=== PATIENT | female | born 1965 | race Caucasian/White ===

== ENCOUNTER 2017-10-02 15:51 | Emergency (ER) | payer MEDICARE, MEDICAID ==
[~2017-10-02] VITALS: Ht 149.9 cm; Wt 91.0 kg
[~2017-10-02 15:51] MED LIST: BACL10TA PO; CLON1TAB4 PO; DULO60CA64 PO; GLIP5TAB13 PO; IBUP-1984 PO; LANTUS SUBCUT; LISI10TA4 PO; LORA10TA7 PO; LOTLOT TOP; LURA40TA3 PO; MULT-342 PO; OMEP20CA10 PO; PROM25TA14 PO; TRAM50TA2 PO
[2017-10-02 16:28] LABS: BASOPHILS % (AUTO) 0.5 % (0-1); EOSINOPHILS # (AUTO) 0.3 X10'3 (0-0.9); EOSINOPHILS % (AUTO) 3.4 % (0-6); HEMATOCRIT 39.4 % (35.0-45.0); HEMOGLOBIN 13.6 g/dl (12.0-16.0); LYMPHOCYTES % (AUTO) 10.5 % (21-51); MEAN CORPUSCULAR HEMOGLOBIN 30.4 PG (27.0-31.0); MEAN CORPUSCULAR HGB CONC 34.6 % (33.0-36.5); MEAN PLATELET VOLUME 8.4 FL (7.4-10.4); MONOCYTES # (AUTO) 0.5 X10'3 (0-0.9); MONOCYTES % (AUTO) 5.8 % (2-12); NEUTROPHILS # (AUTO) 7.4 X10'3 (1.8-7.7); NEUTROPHILS % (AUTO) 79.8 % (42-75); PLATELET COUNT 222 X10'3 (140-440); RED BLOOD COUNT 4.48 X10'6 (4.20-5.60); RED CELL DISTRIBUTION WIDTH 15.3 % (11.5-14.5); WHITE BLOOD COUNT 9.3 X10'3 (4.5-11.0)
[2017-10-02 16:37] LABS: PROTHROMBIN TIME 10.6 SECONDS (9.0-12.0)
[2017-10-02 16:44] LABS: ALANINE AMINOTRANSFERASE 62 U/L (12-78); ALBUMIN 4.2 G/DL (3.4-5.0); ALKALINE PHOSPHATASE 142 IU/L (46-116); ANION GAP 7 (8-16); ASPARTATE AMINO TRANSFERASE 30 U/L (10-37); BILIRUBIN,TOTAL 0.4 MG/DL (0.1-1.0); BLOOD UREA NITROGEN 21 MG/DL (7-18); BUN/CREATININE RATIO 23.3 (6.6-38.0); CALCIUM 9.7 MG/DL (8.5-10.1); CHLORIDE 100 MMOL/L (99-107); GLUCOSE 72 MG/DL (70-104); POTASSIUM 4.2 MMOL/L (3.5-5.1); SODIUM 138 MMOL/L (135-145); TOTAL CARBON DIOXIDE 31.1 MMOL/L (24-32); TOTAL PROTEIN 8.4 G/DL (6.4-8.2); eGFR 66 ML/MIN
[2017-10-02] MEDS ORDERED: normal saline 1000ML IV soln IVB ONE (17:50)
[2017-10-02] MEDS ORDERED: morphine 2 MG/ML inj. syringe IV PRN (17:50)
[2017-10-02] MEDS ORDERED: ondansetron/PF 4mg/2ml inj IV ONE (17:50)
[2017-10-02 18:13] LABS: CLARITY,URINE CLEAR (Clear); COLOR,URINE STRAW (Yellow); PH,URINE 5.5 (4.8-8.0); UA COLLECTION TYPE CLN CATCH MIDSTREAM
[2017-10-02 18:14] LABS: GLUCOSE, URINE >=1000 mg/dl (Neg); KETONES,URINE NEGATIVE (Neg); NITRITES, URINE NEGATIVE (Neg); OCCULT BLOOD,URINE NEGATIVE (Neg); PROTEIN,URINE NEGATIVE (Neg); UROBILINOGEN,URINE 0.2 E.U/dL (0.2-1.0)
[2017-10-02 18:15] LABS: LEUKOCYTE ESTERASE ,URINE NEGATIVE (Neg)
[2017-10-02 18:17] LABS: BACTERIA,URINE NONE SEEN /HPF (Neg); RBC,URINE NONE SEEN /HPF (0-2); SQUAMOUS EPITHELIAL CELL,UR FEW /LPF (FEW); WBC,URINE NONE SEEN /HPF (0-4)
[2017-10-02 19:13] LABS: URINE AMPHETAMINE SCREEN NEGATIVE (Neg); URINE BARBITUATE SCREEN NEGATIVE (Neg); URINE BENZODIAZEPINES SCREEN NEGATIVE (Neg); URINE CANNABINOID SCREEN NEGATIVE (Neg); URINE COCAINE SCREEN NEGATIVE (Neg); URINE METHADONE SCREEN NEGATIVE (Neg); URINE OPIATE SCREEN NEGATIVE (Neg); URINE PHENCYCLIDINE SCREEN NEGATIVE (Neg)
[2017-10-02] MEDS: morphine 4 MG/ML inj SYRINge IV PRN ×2 (19:19→20:35)
[2017-10-02] MEDS ORDERED: ONDA4TAB12 PO (21:01)
[2017-10-02] MEDS ORDERED: dexamethasone 4mg/ml inj IV STA (21:04)
[2017-10-02] MEDS ORDERED: PRED20TA PO (21:06)
[2017-10-02 21:47] VITALS: BP 132/74
== END 2017-10-02 21:49 | disposition home or self-care (01) ==
LOC: ER 15:52
DX: R10.11 Right upper quadrant pain (principal); L25.9 Unspecified contact dermatitis, unspecified cause; I10 Essential (primary) hypertension; E11.9 Type 2 diabetes mellitus without complications; G89.29 Other chronic pain; Z88.2 Allergy status to sulfonamides; Z79.4 Long term (current) use of insulin; Z79.899 Other long term (current) drug therapy
CPT/HCPCS: 36415; 71045; 74176; 80053; 80305; 81001; 84145; 84443; 85025; 85610; 87502; 87503; 96361; 96374; 96375; 99285; J1100; J2270; J2405; J7030; 93005

== ENCOUNTER 2018-12-24 20:12 | Emergency (ER) | payer MEDICARE, MEDICAID ==
[~2018-12-24] VITALS: Ht 149.9 cm; Wt 88.8 kg
[~2018-12-24 20:12] MED LIST changes: +CLON-371 PO; -CLON1TAB4 PO; +ONDA4TAB12 PO
[2018-12-24] MEDS ORDERED: acetaminophen 325mg tablet PO STA (21:38)
[2018-12-24] MEDS ORDERED: normal saline 1000ML IV soln IV ONE (21:40)
[2018-12-24] MEDS ORDERED: CefTRIAXone 2gm/D5W 50ml 50 ML IV ONE (21:40)
[2018-12-24 21:41] LABS: CLARITY,URINE CLEAR (Clear); COLOR,URINE YELLOW (Yellow); GLUCOSE, URINE >=1000 mg/dl (Neg); KETONES,URINE NEGATIVE (Neg); LEUKOCYTE ESTERASE ,URINE NEGATIVE (Neg); NITRITES, URINE NEGATIVE (Neg); OCCULT BLOOD,URINE NEGATIVE (Neg); PH,URINE 5.5 (4.8-8.0); PROTEIN,URINE NEGATIVE (Neg); UROBILINOGEN,URINE 0.2 E.U/dL (0.2-1.0)
[2018-12-24 21:43] LABS: UA COLLECTION TYPE CLN CATCH MIDSTREAM
[2018-12-24 21:44] LABS: WBC,URINE 0-4 /HPF (0-4)
[2018-12-24 21:45] LABS: BACTERIA,URINE 1+ /HPF (Neg); RBC,URINE NONE SEEN /HPF (0-2); SQUAMOUS EPITHELIAL CELL,UR FEW /LPF (FEW)
[2018-12-24 22:16] LABS: BASOPHILS % (AUTO) 0.6 % (0-1); EOSINOPHILS # (AUTO) 0.3 X10'3 (0-0.9); EOSINOPHILS % (AUTO) 3.8 % (0-6); HEMATOCRIT 42.3 % (35.0-45.0); HEMOGLOBIN 14.3 g/dl (12.0-16.0); LYMPHOCYTES # (AUTO) 1.3 X10'3 (1.1-4.8); LYMPHOCYTES % (AUTO) 19.9 % (21-51); MEAN CORPUSCULAR HEMOGLOBIN 30.2 PG (27.0-31.0); MEAN CORPUSCULAR HGB CONC 33.7 g/dL (33.0-36.5); MEAN CORPUSCULAR VOLUME 89.6 FL (78-98); MEAN PLATELET VOLUME 8.7 FL (7.4-10.4); MONOCYTES # (AUTO) 0.6 X10'3 (0-0.9); MONOCYTES % (AUTO) 9.1 % (2-12); NEUTROPHILS # (AUTO) 4.4 X10'3 (1.8-7.7); NEUTROPHILS % (AUTO) 66.6 % (42-75); PLATELET COUNT 229 X10'3 (140-440); RED BLOOD COUNT 4.72 X10'6 (4.20-5.60); RED CELL DISTRIBUTION WIDTH 14.8 % (11.5-14.5); WHITE BLOOD COUNT 6.7 X10'3 (4.5-11.0)
[2018-12-24 22:35] LABS: ALANINE AMINOTRANSFERASE 47 U/L (12-78); ALBUMIN 3.9 G/DL (3.4-5.0); ALKALINE PHOSPHATASE 159 IU/L (46-116); ANION GAP 6 (8-16); ASPARTATE AMINO TRANSFERASE 25 U/L (10-37); BILIRUBIN,TOTAL 0.5 MG/DL (0.1-1.0); BLOOD UREA NITROGEN 17 MG/DL (7-18); CALCIUM 9.4 MG/DL (8.5-10.1); CHLORIDE 103 MMOL/L (99-107); CREATININE 1.06 MG/DL (0.40-0.90); GLUCOSE 129 MG/DL (70-104); MAGNESIUM 2.2 MG/DL (1.5-2.4); POTASSIUM 3.9 MMOL/L (3.5-5.1); SODIUM 137 MMOL/L (135-145); TOTAL CARBON DIOXIDE 28.2 MMOL/L (24-32); TOTAL PROTEIN 7.7 G/DL (6.4-8.2); eGFR 54 ML/MIN
[2018-12-24 22:36] LABS: INR 1.1 INR; PARTIAL THROMBOPLASTIN TIME 27 SECONDS (22-32)
[2018-12-24] MEDS ORDERED: CEPH500C5 PO (23:22)
[2018-12-24 23:29] VITALS: BP 123/73
== END 2018-12-24 23:32 | disposition home or self-care (01) ==
LOC: ER 20:13
DX: N39.0 Urinary tract infection, site not specified (principal); M54.5 Low back pain; I10 Essential (primary) hypertension; E11.9 Type 2 diabetes mellitus without complications; G89.29 Other chronic pain; Z88.2 Allergy status to sulfonamides; Z79.4 Long term (current) use of insulin; Z79.899 Other long term (current) drug therapy
CPT/HCPCS: 36415; 71045; 74176; 80053; 81001; 83605; 83735; 84145; 85025; 85610; 85730; 87040; 87088; 96365; 99284; J0696; J7030

== ENCOUNTER 2019-04-03 21:28 | Emergency (ER) | payer MEDICARE, MEDICAID ==
[~2019-04-03] VITALS: Ht 147.3 cm; Wt 81.8 kg
[~2019-04-03 21:28] MED LIST changes: +DIPH25CA83 PO; -DULO60CA64 PO; +DULO60CA65 PO; +FAMO-128 PO; -OMEP20CA10 PO; +OMEP20CA11 PO
[2019-04-03 22:52] LABS: ALANINE AMINOTRANSFERASE 64 U/L (12-78); ALBUMIN 4.3 G/DL (3.4-5.0); ALKALINE PHOSPHATASE 167 IU/L (46-116); ANION GAP 14 (8-16); ASPARTATE AMINO TRANSFERASE 39 U/L (10-37); BILIRUBIN,TOTAL 0.9 MG/DL (0.1-1.0); BLOOD UREA NITROGEN 17 MG/DL (7-18); BUN/CREATININE RATIO 14.4 (6.6-38.0); CALCIUM 9.6 MG/DL (8.5-10.1); CHLORIDE 100 MMOL/L (99-107); CREATININE 1.18 MG/DL (0.40-0.90); GLUCOSE 139 MG/DL (70-104); PARTIAL THROMBOPLASTIN TIME 28 SECONDS (22-32); POTASSIUM 3.9 MMOL/L (3.5-5.1); SODIUM 140 MMOL/L (135-145); TOTAL CARBON DIOXIDE 26.4 MMOL/L (24-32); TOTAL PROTEIN 8.5 G/DL (6.4-8.2); eGFR 48 ML/MIN
[2019-04-03] MEDS ORDERED: normal saline 1000ML IV soln IVB ONE (22:55)
[2019-04-03 22:57] LABS: BASOPHILS # (AUTO) 0.1 X10'3 (0-0.2); BASOPHILS % (AUTO) 0.7 % (0-1); EOSINOPHILS # (AUTO) 0.3 X10'3 (0-0.9); EOSINOPHILS % (AUTO) 3.5 % (0-6); HEMOGLOBIN 16.3 g/dl (12.0-16.0); LYMPHOCYTES # (AUTO) 1.5 X10'3 (1.1-4.8); LYMPHOCYTES % (AUTO) 15.8 % (21-51); MEAN CORPUSCULAR HEMOGLOBIN 30.7 PG (27.0-31.0); MEAN CORPUSCULAR HGB CONC 33.9 g/dL (33.0-36.5); MEAN CORPUSCULAR VOLUME 90.4 FL (78-98); MEAN PLATELET VOLUME 8.9 FL (7.4-10.4); MONOCYTES # (AUTO) 0.8 X10'3 (0-0.9); MONOCYTES % (AUTO) 8.5 % (2-12); NEUTROPHILS # (AUTO) 6.9 X10'3 (1.8-7.7); NEUTROPHILS % (AUTO) 71.5 % (42-75); PLATELET COUNT 290 X10'3 (140-440); RED BLOOD COUNT 5.31 X10'6 (4.20-5.60); RED CELL DISTRIBUTION WIDTH 14.6 % (11.5-14.5); TROPONIN I < 0.04 NG/ML (0.0-0.05); WHITE BLOOD COUNT 9.7 X10'3 (4.5-11.0)
--- NOTE | 2019-04-03 23:19 | NUR ---
2ND PAGE VASC AT 23:19
--- NOTE | 2019-04-03 23:44 | NUR ---
AFTER CALLING NURSE LING WHITESIDE CALLED BACK AT 23:45 AND WILL BE RIGHT IN
[2019-04-03 23:47] LABS: D-DIMER 0.26 MG/L FEU (0-0.50)
[2019-04-04] MEDS ORDERED: HYDROcodone/acetaminophen 5mg/325mg tablet PO ONE
--- NOTE | 2019-04-04 00:15 | NUR ---
underwriting technician at bedside to perform vascular study of lower extremities.
[2019-04-04 00:59] VITALS: BP 120/76
== END 2019-04-04 01:03 | disposition home or self-care (01) ==
LOC: ER 21:29
DX: R06.02 Shortness of breath (principal); M79.604 Pain in right leg; I10 Essential (primary) hypertension; R00.0 Tachycardia, unspecified; E78.00 Pure hypercholesterolemia, unspecified; G89.29 Other chronic pain; F41.9 Anxiety disorder, unspecified; F32.9 Major depressive disorder, single episode, unspecified; F12.90 Cannabis use, unspecified, uncomplicated; Z90.710 Acquired absence of both cervix and uterus; Z88.2 Allergy status to sulfonamides; Z88.1 Allergy status to other antibiotic agents; Z79.4 Long term (current) use of insulin; Z79.899 Other long term (current) drug therapy
CPT/HCPCS: 36415; 71045; 80053; 82948; 83605; 84145; 84484; 85025; 85379; 85610; 85730; 87040; 93005; 93971; 96360; 99284; J7030

== ENCOUNTER 2019-04-27 13:59 | Emergency (ER) | payer MEDICARE, MEDICAID ==
[~2019-04-27] VITALS: Ht 147.3 cm; Wt 84.1 kg
[2019-04-27] MEDS ORDERED: ondansetron/PF 4mg/2ml inj IV ONE (14:05)
[2019-04-27] MEDS ORDERED: normal saline 1000ML IV soln IVB ONE (14:05)
[2019-04-27 14:28] LABS: BASOPHILS % (AUTO) 0.3 % (0-1); EOSINOPHILS % (AUTO) 0.2 % (0-6); HEMATOCRIT 43.6 % (35.0-45.0); HEMOGLOBIN 15.1 g/dl (12.0-16.0); LYMPHOCYTES # (AUTO) 0.7 X10'3 (1.1-4.8); LYMPHOCYTES % (AUTO) 7.4 % (21-51); MEAN CORPUSCULAR HEMOGLOBIN 30.9 PG (27.0-31.0); MEAN CORPUSCULAR HGB CONC 34.6 g/dL (33.0-36.5); MEAN CORPUSCULAR VOLUME 89.4 FL (78-98); MEAN PLATELET VOLUME 9.2 FL (7.4-10.4); MONOCYTES # (AUTO) 0.3 X10'3 (0-0.9); MONOCYTES % (AUTO) 3.8 % (2-12); NEUTROPHILS # (AUTO) 8.1 X10'3 (1.8-7.7); NEUTROPHILS % (AUTO) 88.3 % (42-75); PLATELET COUNT 212 X10'3 (140-440); RED BLOOD COUNT 4.88 X10'6 (4.20-5.60); RED CELL DISTRIBUTION WIDTH 13.9 % (11.5-14.5); WHITE BLOOD COUNT 9.2 X10'3 (4.5-11.0)
[2019-04-27 14:42] LABS: CLARITY,URINE CLEAR (Clear); COLOR,URINE YELLOW (Yellow); GLUCOSE, URINE >=1000 mg/dl (Neg); KETONES,URINE >=80 mg/dl (Neg); LEUKOCYTE ESTERASE ,URINE NEGATIVE (Neg); NITRITES, URINE NEGATIVE (Neg); OCCULT BLOOD,URINE NEGATIVE (Neg); PROTEIN,URINE NEGATIVE (Neg); UROBILINOGEN,URINE 0.2 E.U/dL (0.2-1.0)
[2019-04-27 14:44] LABS: UA COLLECTION TYPE STRAIGHT CATH
[2019-04-27 14:46] LABS: ALANINE AMINOTRANSFERASE 42 U/L (12-78); ALBUMIN 3.9 G/DL (3.4-5.0); ALKALINE PHOSPHATASE 142 IU/L (46-116); ANION GAP 13 (8-16); ASPARTATE AMINO TRANSFERASE 24 U/L (10-37); BILIRUBIN,TOTAL 0.8 MG/DL (0.1-1.0); BLOOD UREA NITROGEN 16 MG/DL (7-18); CALCIUM 9.6 MG/DL (8.5-10.1); CHLORIDE 102 MMOL/L (99-107); CREATININE 1.14 MG/DL (0.40-0.90); GLUCOSE 193 MG/DL (70-104); POTASSIUM 4.3 MMOL/L (3.5-5.1); SODIUM 139 MMOL/L (135-145); TOTAL CARBON DIOXIDE 24.3 MMOL/L (24-32); TOTAL PROTEIN 7.9 G/DL (6.4-8.2); eGFR 50 ML/MIN
[2019-04-27 14:51] LABS: LIPASE 67 U/L (73-393)
[2019-04-27 14:54] LABS: BACTERIA,URINE NONE SEEN /HPF (Neg); RBC,URINE NONE SEEN /HPF (0-2); SQUAMOUS EPITHELIAL CELL,UR MODERATE /LPF (FEW); WBC,URINE NONE SEEN /HPF (0-4)
[2019-04-27] MEDS ORDERED: MYCOL15CR TOP (15:00)
[2019-04-27] MEDS ORDERED: ONDA4TAB6 PO (15:00)
[2019-04-27] MEDS ORDERED: morphine 4 MG/ML inj SYRINge IV ONE (15:00)
[2019-04-27] MEDS ORDERED: LORazepam 2 mg/ml vial IV ONE (15:00)
--- NOTE | 2019-04-27 15:23 | NUR ---
Called caregiver, Rj, states that they will come to ED to give pt ride home.
[2019-04-27 16:02] VITALS: BP 115/77
== END 2019-04-27 16:06 | disposition home or self-care (01) ==
LOC: ER 14:00
DX: A08.4 Viral intestinal infection, unspecified (principal); B37.3 Candidiasis of vulva and vagina; I10 Essential (primary) hypertension; E11.9 Type 2 diabetes mellitus without complications; G89.29 Other chronic pain; F41.9 Anxiety disorder, unspecified; F32.9 Major depressive disorder, single episode, unspecified; F12.90 Cannabis use, unspecified, uncomplicated; C53.9 Malignant neoplasm of cervix uteri, unspecified; Z88.2 Allergy status to sulfonamides; Z86.73 Personal history of transient ischemic attack (TIA), and cerebral infarction without residual deficits; Z88.1 Allergy status to other antibiotic agents; Z79.4 Long term (current) use of insulin; Z79.899 Other long term (current) drug therapy
CPT/HCPCS: 36415; 71045; 80053; 81001; 83690; 83880; 84484; 85025; 93005; 96361; 96374; 96375; 99284; J2060; J2270; J2405; J7030; P9612

== ENCOUNTER 2019-07-12 00:37 | Emergency (ER) | payer MEDICARE, MEDICAID ==
[~2019-07-12] VITALS: Ht 149.9 cm; Wt 81.0 kg
[~2019-07-12 00:37] MED LIST changes: +OMEP-297 PO; -OMEP20CA11 PO; +ONDA4TAB6 PO
--- NOTE | 2019-07-12 00:49 | NUR ---
Dr Quesada at bedside to nathan pt
[2019-07-12] MEDS ORDERED: normal saline 1000ML IV soln IV ONE (00:55)
[2019-07-12] MEDS ORDERED: acetaminophen 325mg tablet PO ONE (01:30)
[2019-07-12 01:40] LABS: PARTIAL THROMBOPLASTIN TIME 26 SECONDS (22-32)
[2019-07-12 01:59] LABS: ALANINE AMINOTRANSFERASE 50 U/L (12-78); ALKALINE PHOSPHATASE 182 IU/L (46-116); ANION GAP 9 (8-16); ASPARTATE AMINO TRANSFERASE 28 U/L (10-37); BILIRUBIN,TOTAL 0.5 MG/DL (0.1-1.0); BLOOD UREA NITROGEN 19 MG/DL (7-18); BUN/CREATININE RATIO 18.8 (6.6-38.0); CALCIUM 9.1 MG/DL (8.5-10.1); CHLORIDE 99 MMOL/L (99-107); CREATININE 1.01 MG/DL (0.40-0.90); GLUCOSE 253 MG/DL (70-104); MAGNESIUM 1.9 MG/DL (1.5-2.4); POTASSIUM 4.4 MMOL/L (3.5-5.1); SODIUM 137 MMOL/L (135-145); TOTAL CARBON DIOXIDE 28.6 MMOL/L (24-32); TOTAL PROTEIN 7.9 G/DL (6.4-8.2); eGFR 57 ML/MIN
[2019-07-12 02:11] LABS: BASOPHILS % (AUTO) 0.5 % (0-1); EOSINOPHILS # (AUTO) 0.2 X10'3 (0-0.9); EOSINOPHILS % (AUTO) 3.2 % (0-6); HEMOGLOBIN 14.7 g/dl (12.0-16.0); LYMPHOCYTES # (AUTO) 0.8 X10'3 (1.1-4.8); LYMPHOCYTES % (AUTO) 12.6 % (21-51); MEAN CORPUSCULAR HGB CONC 34.1 g/dL (33.0-36.5); MEAN PLATELET VOLUME 9.5 FL (7.4-10.4); MONOCYTES # (AUTO) 0.4 X10'3 (0-0.9); MONOCYTES % (AUTO) 7.2 % (2-12); NEUTROPHILS # (AUTO) 4.6 X10'3 (1.8-7.7); NEUTROPHILS % (AUTO) 76.5 % (42-75); PLATELET COUNT 182 X10'3 (140-440); RED BLOOD COUNT 4.73 X10'6 (4.20-5.60); RED CELL DISTRIBUTION WIDTH 14.6 % (11.5-14.5); WHITE BLOOD COUNT 6.1 X10'3 (4.5-11.0)
[2019-07-12 02:23] LABS: URINE HCG NEGATIVE (NEG)
[2019-07-12 02:28] LABS: CLARITY,URINE CLEAR (Clear); COLOR,URINE YELLOW (Yellow); GLUCOSE, URINE >=1000 mg/dl (Neg); KETONES,URINE NEGATIVE (Neg); LEUKOCYTE ESTERASE ,URINE NEGATIVE (Neg); NITRITES, URINE NEGATIVE (Neg); OCCULT BLOOD,URINE NEGATIVE (Neg); PROTEIN,URINE NEGATIVE (Neg); UROBILINOGEN,URINE 0.2 E.U/dL (0.2-1.0)
[2019-07-12] MEDS ORDERED: normal saline 1000ML IV soln IVB ONE (02:30)
[2019-07-12 02:33] LABS: UA COLLECTION TYPE CLN CATCH MIDSTREAM
[2019-07-12 02:35] LABS: BACTERIA,URINE FEW /HPF (Neg); MUCUS STRANDS NONE SEEN /LPF (Neg); RBC,URINE NONE SEEN /HPF (0-2); SQUAMOUS EPITHELIAL CELL,UR FEW /LPF (FEW); WBC,URINE 0-4 /HPF (0-4)
[2019-07-12] MEDS ORDERED: NYST1POW5 TOP (02:50)
[2019-07-12] MEDS ORDERED: nystatin 15 GM powder TP ONE (02:50)
[2019-07-12] MEDS ORDERED: HYDROcodone/acetaminophen 5mg/325mg tablet PO ONE (02:50)
[2019-07-12] MEDS ORDERED: nystatin 15 GM powder TP SCH (02:50)
[2019-07-12] MEDS ORDERED: fluconazole 150mg tablet PO ONE (03:00)
[2019-07-12 04:00] VITALS: BP 100/64
== END 2019-07-12 04:01 | disposition home or self-care (01) ==
LOC: ER 00:38
DX: B37.9 Candidiasis, unspecified (principal); R50.9 Fever, unspecified; R53.83 Other fatigue; I10 Essential (primary) hypertension; E11.9 Type 2 diabetes mellitus without complications; G89.29 Other chronic pain; F41.9 Anxiety disorder, unspecified; F32.9 Major depressive disorder, single episode, unspecified; F12.90 Cannabis use, unspecified, uncomplicated; Z90.710 Acquired absence of both cervix and uterus; Z88.2 Allergy status to sulfonamides; Z88.1 Allergy status to other antibiotic agents; Z79.2 Long term (current) use of antibiotics; Z79.4 Long term (current) use of insulin; Z79.899 Other long term (current) drug therapy
CPT/HCPCS: 36415; 71045; 80053; 81001; 81025; 83605; 83735; 84145; 85025; 85610; 85730; 87040; 93005; 99284; J7030

== ENCOUNTER 2021-01-05 21:21 | Emergency (ER) | payer MEDICARE, MEDICAID ==
[~2021-01-05] VITALS: Ht 147.3 cm; Wt 79.0 kg
[~2021-01-05 21:21] MED LIST changes: +LISI10TA27 PO; -LISI10TA4 PO; +NYST1POW5 TOP; -OMEP-297 PO; +OMEP20CA15 PO
[2021-01-06] MEDS ORDERED: HYDROcodone/acetaminophen 10/325mg tab PO ONE (03:40)
[2021-01-06] MEDS ORDERED: amox tr/potassium clavulanate 875/125mg TAB PO ONE (03:55)
[2021-01-06] MEDS ORDERED: AMOX-422 PO (04:58)
[2021-01-06] MEDS ORDERED: HYDR-3972 PO (04:58)
[2021-01-06 05:20] VITALS: BP 144/75
== END 2021-01-06 05:33 | disposition home or self-care (01) ==
LOC: ER 21:22
DX: E11.621 Type 2 diabetes mellitus with foot ulcer (principal); L97.411 Non-pressure chronic ulcer of right heel and midfoot limited to breakdown of skin; G62.9 Polyneuropathy, unspecified; I10 Essential (primary) hypertension; G89.29 Other chronic pain; F41.9 Anxiety disorder, unspecified; F32.9 Major depressive disorder, single episode, unspecified; F12.90 Cannabis use, unspecified, uncomplicated; Z85.41 Personal history of malignant neoplasm of cervix uteri; Z90.710 Acquired absence of both cervix and uterus; Z88.2 Allergy status to sulfonamides; Z88.1 Allergy status to other antibiotic agents; Z88.8 Allergy status to other drugs, medicaments and biological substances; Z79.2 Long term (current) use of antibiotics; Z79.4 Long term (current) use of insulin; Z79.899 Other long term (current) drug therapy
CPT/HCPCS: 73630; 99284

== ENCOUNTER 2021-02-10 09:30 | Inpatient (IN) | payer MEDICARE, MEDICAID ==
[2021-02-02 16:05] LABS: CLARITY,URINE SLIGHTLY CLOUDY (Clear); COLOR,URINE STRAW (Yellow); GLUCOSE, URINE >=1000 mg/dl (Neg); KETONES,URINE NEGATIVE (Neg); LEUKOCYTE ESTERASE ,URINE NEGATIVE (Neg); NITRITES, URINE NEGATIVE (Neg); OCCULT BLOOD,URINE NEGATIVE (Neg); PH,URINE 6.5 (4.8-8.0); PROTEIN,URINE NEGATIVE (Neg); UROBILINOGEN,URINE 0.2 E.U/dL (0.2-1.0)
[2021-02-02 16:06] LABS: UA COLLECTION TYPE CLN CATCH MIDSTREAM
[2021-02-02 16:11] LABS: BASOPHILS % (AUTO) 0.6 % (0-1); EOSINOPHILS # (AUTO) 0.2 X10'3 (0-0.9); EOSINOPHILS % (AUTO) 3.3 % (0-6); LYMPHOCYTES # (AUTO) 0.9 X10'3 (1.1-4.8); LYMPHOCYTES % (AUTO) 16.6 % (21-51); MEAN CORPUSCULAR HGB CONC 33.6 g/dL (33.0-36.5); MEAN CORPUSCULAR VOLUME 86.3 FL (78-98); MEAN PLATELET VOLUME 8.3 FL (7.4-10.4); MONOCYTES # (AUTO) 0.3 X10'3 (0-0.9); MONOCYTES % (AUTO) 6.2 % (2-12); NEUTROPHILS % (AUTO) 73.3 % (42-75); PRE OP HEMOGLOBIN 13.1 g/dL (12.0-16.0); PRE OP PLATELET COUNT 148 X10'3 (140-440); RED BLOOD COUNT 4.52 X10'6 (4.20-5.60)
[2021-02-02 16:18] LABS: SQUAMOUS EPITHELIAL CELL,UR MODERATE /LPF (FEW)
[2021-02-02 16:19] LABS: BACTERIA,URINE FEW /HPF (Neg); RBC,URINE 0-2 /HPF (0-2); WBC,URINE 0-4 /HPF (0-4)
[2021-02-02 16:21] LABS: ALBUMIN 3.7 G/DL (3.4-5.0); ALBUMIN/GLOBULIN RATIO 0.9 (1.1-1.5); ALKALINE PHOSPHATASE 175 IU/L (46-116); BLOOD UREA NITROGEN 14 MG/DL (7-18); BUN/CREATININE RATIO 18.4 (6.6-38.0); CALCIUM 8.9 MG/DL (8.5-10.1); CHLORIDE 100 MMOL/L (99-107); CREATININE 0.76 MG/DL (0.40-0.90); PRE OP ALT 38 U/L (30-65); PRE OP ANION GAP 7 (8-16); PRE OP AST 27 U/L (10-37); PRE OP BILIRUB, TOTAL 0.5 MG/DL (0.0-1.0); PRE OP GLUCOSE 105 MG/DL (70-104); PRE OP POTASSIUM 4.3 MMOL/L (3.4-5.1); PRE OP SODIUM 137 MMOL/L (135-145); TOTAL CARBON DIOXIDE 29.8 MMOL/L (24-32); eGFR 79 ML/MIN
[2021-02-02 16:35] LABS: HEMOGLOBIN A1C 8.4 % (4.5-6.2)
[2021-02-10] VITALS (13 sets, daily range): BP systolic 116–149; BP diastolic 61–97
[~2021-02-10] VITALS: Ht 147.3 cm; Wt 82.8 kg
[~2021-02-10 09:30] MED LIST changes: +AMIT10TA6 PO; +AMOX250S3 PO; -BACL10TA PO; -CLON-371 PO; -DIPH25CA83 PO; +EMPA1TAB3 PO; -FAMO-128 PO; +GABA-534 PO; -GLIP5TAB13 PO; +HYDR-3972 PO; -IBUP-1984 PO; +INSU100V9 SQ; -LANTUS SUBCUT; +LIDOcaine 2% 5ml jelly ONE; -LOTLOT TOP; -LURA40TA3 PO; +MULT-1130 PO; -MULT-342 PO; +MV/K1COM PO; -NYST1POW5 TOP; -ONDA4TAB12 PO; -ONDA4TAB6 PO; -PROM25TA14 PO; -TRAM50TA2 PO; +TRAZ-251 PO; +cefazolin/dext.iso 2gm/100ml IV ONE; +famotidine 20mg tablet PO ONE; +ringers solution, lacted 1,000 ML IV SCH
[2021-02-10] MEDS ORDERED: insulin regular, human 10 units/0.1 ml syringe SQ ONE (11:20)
[2021-02-10] MEDS ORDERED: diazepam 5mg tablet PO ONE (11:25)
[2021-02-10] MEDS ORDERED: morphine 4 MG/ML inj SYRINge IV PRN (11:35)
[2021-02-10] MEDS ORDERED: meperidine/PF 25mg/ml syringe IV PRN ×3 (11:35)
[2021-02-10] MEDS ORDERED: proCHLORperazine 10 MG/2 ml inj IV PRN (11:35)
[2021-02-10] MEDS ORDERED: ringers solution, lacted 1,000 ML IV SCH (11:35)
[2021-02-10] MEDS ORDERED: ondansetron/PF 4mg/2ml inj IV PRN ×2 (11:35→13:55)
[2021-02-10] MEDS ORDERED: morphine 2 MG/ML inj. syringe IV PRN ×2 (11:35→13:55)
[2021-02-10] MEDS ORDERED: fentaNYL/PF 50MCG/1 ML 2ML syringe ONE (12:26)
[2021-02-10] MEDS ORDERED: midazolam 1 mg/ML 2ml injection ONE (12:26)
[2021-02-10] MEDS ORDERED: propofol inj 20 ML IV ONE (12:27)
[2021-02-10] MEDS ORDERED: ROPIVAcaine 0.5% (5mg/ml) 30ml vial ONE (12:30)
[2021-02-10] MEDS ORDERED: sevoflurane 250ml liquid IH ONE (12:31)
[2021-02-10] MEDS ORDERED: bacitracin 15gm ointment TP ONE (13:34)
[2021-02-10] MEDS ORDERED: mag hydrox/Alum hydrox/simeth 30ml oral suspension PO PRN (13:55)
[2021-02-10] MEDS ORDERED: acetaminophen 325mg tablet PO PRN (13:55)
[2021-02-10] MEDS ORDERED: magnesium hydroxide 30ml (MOM) UD suspension PO PRN (13:55)
--- NOTE | 2021-02-10 14:38 | NUR ---
RECEIVED REPORT FROM [facility]. PT AWAKE ALERT VSS RA SAT 94% DENIES PAIN IV TO RIGHT HAND 20G INTACT WITH IVF INFUSING WITHOUT DIFF. CONT TO MONITOR Addendum: 02/10/21 at 1450 by Aurora Alexander RN Amended: Links added.
[2021-02-10] MEDS ORDERED: HYDROcodone/acetaminophen 10/325mg tab PO PRN (16:10)
[2021-02-10] MEDS: HYDROcodone/acetaminophen 10/325mg tab PO PRN ×2 (17:37→21:58)
--- NOTE | 2021-02-10 18:12 | NUR ---
Problems reprioritized. Patient report given, questions answered & plan of care reviewed with LORRAINE DUNCAN.
[2021-02-10] MEDS ORDERED: insulin Lispro (HumaLOG) vial - multi-dose SQ SCH (18:15)
[2021-02-10] MEDS ORDERED: MESSAGE TO PHARMACY PO ONE (18:15)
[2021-02-10] MEDS ORDERED: dextrose ORAL solution 15 GM/59 ML bottle PO PRN ×2 (18:15)
[2021-02-10] MEDS ORDERED: glucagon, human recombinant 1mg kit SUBCUT PRN (18:15)
[2021-02-10] MEDS ORDERED: dextrose 50%-water 50ml dispensing syringe IV PRN ×2 (18:15)
--- NOTE | 2021-02-10 18:35 | NUR ---
Patient in room ORTHO 4007. I have received report from Rivka DUNCAN and had the opportunity to ask questions and assume patient care.
[2021-02-10] MEDS ORDERED: traZODone 50mg tablet PO SCH (21:00)
[2021-02-10] MEDS ORDERED: amitriptyline 25mg tablet PO SCH (21:00)
[2021-02-10] MEDS ORDERED: insulin glargine (Lantus) pen - multi-dose SQ SCH ×3 (21:00)
[2021-02-10] MEDS: gabapentin 400mg capsule PO SCH (21:44)
[2021-02-11 02:00] VITALS: BP 124/79
[2021-02-11] MEDS: HYDROcodone/acetaminophen 10/325mg tab PO PRN ×2 (05:47→09:33)
[2021-02-11 06:00] VITALS: BP 123/73
--- NOTE | 2021-02-11 06:02 | NUR ---
MEDICATED WITH NORCO 10 TO BE READY TO WORK WITH PHY. THER. PATIENT HOPING TO DISCHG EARLY THIS AM TO GET HOME BEFORE IT GETS TOO HOT. REPORT GIVEN TO KAIA DUNCAN
[2021-02-11] MEDS: gabapentin 400mg capsule PO SCH (07:15)
[2021-02-11] MEDS ORDERED: [UNRECOGNIZED DRUG - MIXTURE] PO SCH (08:00)
[2021-02-11] MEDS ORDERED: EMPAGLIFLOZIN PO SCH (08:00)
[2021-02-11] MEDS ORDERED: [UNRECOGNIZED DRUG - OTHER] PO SCH (08:00)
[2021-02-11] MEDS ORDERED: multivitamins, therapeutics tablet PO SCH (08:00)
[2021-02-11] MEDS ORDERED: pantoprazole 40mg Tablet.DR PO SCH (08:00)
[2021-02-11] MEDS ORDERED: loratadine 10mg tablet PO SCH (08:00)
[2021-02-11] MEDS ORDERED: duloxetine 30mg CAPSULE.DR PO SCH (08:00)
[2021-02-11] MEDS ORDERED: LINAGLIPTIN PO SCH (08:00)
[2021-02-11] MEDS ORDERED: amoxicillin 250MG/5ML oral suspension 80ML PO SCH (08:00)
[2021-02-11] MEDS ORDERED: lisinopril 10 MG tablet PO SCH (08:00)
[2021-02-11 10:00] VITALS: BP 115/65
[2021-02-11] MEDS ORDERED: HYDR-3972 PO ×3 (11:01→11:40)
--- NOTE | 2021-02-11 14:05 | NUR ---
Pt discharged at 1345. Belongings sent with pt. Discharge instructions reviewed with patient. All questions answered/ reviewed.. Pt discharged in stable condition with friend in private vehicle
== END 2021-02-11 13:25 | disposition home health service (06) | DRG 502 ==
LOC: PAS 09:30 → ORTHO 4S 15:42
PROVIDERS: ADMIT Podiatrist Foot & Ankle Surgery; ATTEND Podiatrist Foot & Ankle Surgery
PROC: 0QTN0ZZ Resection of Right Metatarsal, Open Approach (ICD-10-PCS; 2021-02-10)
PROC: 3E0T3BZ Introduction of Anesthetic Agent into Peripheral Nerves and Plexi, Percutaneous Approach (ICD-10-PCS; 2021-02-10)
PROC: 0LXV0ZZ Transfer Right Foot Tendon, Open Approach (ICD-10-PCS; principal; 2021-02-10 12:31)
DX: M20.31 Hallux varus (acquired), right foot (principal); E11.40 Type 2 diabetes mellitus with diabetic neuropathy, unspecified; F32.9 Major depressive disorder, single episode, unspecified; I10 Essential (primary) hypertension; E66.9 Obesity, unspecified; M25.871 Other specified joint disorders, right ankle and foot; G89.29 Other chronic pain; K21.9 Gastro-esophageal reflux disease without esophagitis; S90.921A Unspecified superficial injury of right foot, initial encounter; X58.XXXA Exposure to other specified factors, initial encounter; F41.9 Anxiety disorder, unspecified; J44.9 Chronic obstructive pulmonary disease, unspecified; Z79.899 Other long term (current) drug therapy; Z83.3 Family history of diabetes mellitus; Z90.711 Acquired absence of uterus with remaining cervical stump; Z68.38 Body mass index [BMI] 38.0-38.9, adult; Z88.2 Allergy status to sulfonamides; Y93.89 Activity, other specified; Y92.89 Other specified places as the place of occurrence of the external cause; Y99.8 Other external cause status
CPT/HCPCS: 36415; 73620; 76000; 80053; 81001; 82948; 83036; 85025; 85651; 86140; 93005; 97116; 97161; 97530; 97535; G0378; J1815; J2250; J2704; J2795; J3010; J7120; U0003; U0005

== ENCOUNTER 2021-02-19 21:10 | Emergency (ER) | payer MEDICARE, MEDICAID ==
[~2021-02-19] VITALS: Ht 147.3 cm; Wt 77.2 kg
[~2021-02-19 21:10] MED LIST changes: -AMOX250S3 PO; -EMPA1TAB3 PO; -INSU100V9 SQ; -LIDOcaine 2% 5ml jelly ONE; -cefazolin/dext.iso 2gm/100ml IV ONE; -famotidine 20mg tablet PO ONE; -ringers solution, lacted 1,000 ML IV SCH
[2021-02-20] MEDS ORDERED: CLIN-97 PO (00:51)
[2021-02-20] MEDS ORDERED: oxyCODONE/APAP 5-325mg tablet PO ONE (01:05)
[2021-02-20 01:15] LABS: BASOPHILS % (AUTO) 0.7 % (0-1); EOSINOPHILS # (AUTO) 0.2 X10'3 (0-0.9); HEMOGLOBIN 13.2 g/dl (12.0-16.0); LYMPHOCYTES # (AUTO) 0.8 X10'3 (1.1-4.8); LYMPHOCYTES % (AUTO) 14.9 % (21-51); MEAN CORPUSCULAR HEMOGLOBIN 28.8 PG (27.0-31.0); MEAN CORPUSCULAR HGB CONC 33.9 g/dL (33.0-36.5); MEAN PLATELET VOLUME 8.4 FL (7.4-10.4); MONOCYTES # (AUTO) 0.4 X10'3 (0-0.9); MONOCYTES % (AUTO) 7.9 % (2-12); NEUTROPHILS % (AUTO) 73.5 % (42-75); PLATELET COUNT 168 X10'3 (140-440); RED BLOOD COUNT 4.59 X10'6 (4.20-5.60); RED CELL DISTRIBUTION WIDTH 14.7 % (11.5-14.5); WHITE BLOOD COUNT 5.5 X10'3 (4.5-11.0)
[2021-02-20 01:22] LABS: CLARITY,URINE CLEAR (Clear); COLOR,URINE YELLOW (Yellow); GLUCOSE, URINE >=1000 mg/dl (Neg); KETONES,URINE NEGATIVE (Neg); LEUKOCYTE ESTERASE ,URINE TRACE (Neg); NITRITES, URINE NEGATIVE (Neg); OCCULT BLOOD,URINE SMALL (Neg); PROTEIN,URINE NEGATIVE (Neg); UROBILINOGEN,URINE 0.2 E.U/dL (0.2-1.0)
[2021-02-20 01:29] LABS: UA COLLECTION TYPE NON-SPECIFIED
[2021-02-20 01:30] LABS: BACTERIA,URINE FEW /HPF (Neg); RBC,URINE 0-2 /HPF (0-2); SQUAMOUS EPITHELIAL CELL,UR FEW /LPF (FEW)
[2021-02-20 01:57] LABS: ALANINE AMINOTRANSFERASE 47 U/L (12-78); ALBUMIN 3.6 G/DL (3.4-5.0); ALBUMIN/GLOBULIN RATIO 0.9 (1.1-1.5); ALKALINE PHOSPHATASE 176 IU/L (46-116); ANION GAP 6 (8-16); ASPARTATE AMINO TRANSFERASE 27 U/L (10-37); BILIRUBIN,TOTAL 0.6 MG/DL (0.1-1.0); BLOOD UREA NITROGEN 18 MG/DL (7-18); BUN/CREATININE RATIO 19.8 (6.6-38.0); CHLORIDE 99 MMOL/L (99-107); CREATININE 0.91 MG/DL (0.40-0.90); GLUCOSE 188 MG/DL (70-104); SODIUM 134 MMOL/L (135-145); TOTAL CARBON DIOXIDE 29.5 MMOL/L (24-32); TOTAL PROTEIN 7.8 G/DL (6.4-8.2); eGFR 64 ML/MIN
[2021-02-20] MEDS ORDERED: clindamycin 300mg/D5W 50mL 50 ML IV ONE (02:30)
[2021-02-20 03:34] VITALS: BP 139/65
[2021-02-20] MEDS ORDERED: CLINDAMYCIN 300mg/NS 50ml IVPB 50 ML IV SCH (08:00)
== END 2021-02-20 03:36 | disposition home or self-care (01) ==
LOC: ER 21:11
DX: M96.840 Postprocedural hematoma of a musculoskeletal structure following a musculoskeletal system procedure (principal); I10 Essential (primary) hypertension; E11.9 Type 2 diabetes mellitus without complications; F12.90 Cannabis use, unspecified, uncomplicated; G89.29 Other chronic pain; Z87.410 Personal history of cervical dysplasia; Z90.710 Acquired absence of both cervix and uterus; Z88.0 Allergy status to penicillin; Z88.2 Allergy status to sulfonamides; Z91.013 Allergy to seafood; Z79.2 Long term (current) use of antibiotics; Z79.899 Other long term (current) drug therapy; Y83.8 Other surgical procedures as the cause of abnormal reaction of the patient, or of later complication, without mention of misadventure at the time of the procedure; Y79.8 Miscellaneous orthopedic devices associated with adverse incidents, not elsewhere classified
CPT/HCPCS: 36415; 80053; 81001; 83605; 85025; 87040; 96365; 99284; J3490

== ENCOUNTER 2021-07-03 17:43 | Emergency (ER) | payer MEDICARE, MEDICAID ==
[~2021-07-03] VITALS: Ht 147.3 cm; Wt 77.3 kg
[~2021-07-03 17:43] MED LIST changes: +CLIN-97 PO
[2021-07-03 18:29] VITALS: BP 130/85
[2021-07-03 19:15] LABS: CLARITY,URINE CLEAR (Clear); COLOR,URINE YELLOW (Yellow); GLUCOSE, URINE >=1000 mg/dl (Neg); KETONES,URINE NEGATIVE (Neg); LEUKOCYTE ESTERASE ,URINE NEGATIVE (Neg); NITRITES, URINE NEGATIVE (Neg); OCCULT BLOOD,URINE TRACE-LYSED (Neg); PROTEIN,URINE NEGATIVE (Neg); UROBILINOGEN,URINE 0.2 E.U/dL (0.2-1.0)
[2021-07-03 19:27] LABS: UA COLLECTION TYPE NON-SPECIFIED
[2021-07-03 19:31] LABS: BACTERIA,URINE FEW /HPF (Neg); RBC,URINE 0-2 /HPF (0-2); WBC,URINE 0-4 /HPF (0-4)
[2021-07-03 19:32] LABS: MUCUS STRANDS FEW /LPF (Neg); SQUAMOUS EPITHELIAL CELL,UR MODERATE /LPF (FEW)
[2021-07-03] MEDS ORDERED: FLUC150T66 PO (19:37)
[2021-07-03] MEDS ORDERED: MYCOL30CR TP (19:37)
== END 2021-07-03 17:55 | disposition home or self-care (01) ==
LOC: ER 17:43
DX: B37.9 Candidiasis, unspecified (principal); R21 Rash and other nonspecific skin eruption; M25.511 Pain in right shoulder; I10 Essential (primary) hypertension; E11.9 Type 2 diabetes mellitus without complications; F12.90 Cannabis use, unspecified, uncomplicated; G89.29 Other chronic pain; Z87.410 Personal history of cervical dysplasia; Z90.710 Acquired absence of both cervix and uterus; Z88.2 Allergy status to sulfonamides; Z88.8 Allergy status to other drugs, medicaments and biological substances; Z79.2 Long term (current) use of antibiotics; Z79.899 Other long term (current) drug therapy
CPT/HCPCS: 81001; 99283

== ENCOUNTER 2021-07-06 13:48 | Emergency (ER) | payer MEDICARE, MEDICAID ==
[~2021-07-06] VITALS: Ht 147.3 cm; Wt 77.3 kg
[~2021-07-06 13:48] MED LIST changes: +FLUC150T66 PO; +MYCOL30CR TP
[2021-07-06 14:10] VITALS: BP 118/73
[2021-07-06] MEDS ORDERED: HYDR-3965 PO (14:16)
[2021-07-06] MEDS ORDERED: NAPR-56 PO (14:16)
== END 2021-07-06 14:31 | disposition home or self-care (01) ==
LOC: ER 13:50
DX: S46.001A Unspecified injury of muscle(s) and tendon(s) of the rotator cuff of right shoulder, initial encounter (principal); M12.9 Arthropathy, unspecified; M25.511 Pain in right shoulder; I10 Essential (primary) hypertension; E11.9 Type 2 diabetes mellitus without complications; G89.29 Other chronic pain; F41.9 Anxiety disorder, unspecified; F32.9 Major depressive disorder, single episode, unspecified; F12.90 Cannabis use, unspecified, uncomplicated; Z85.41 Personal history of malignant neoplasm of cervix uteri; Z90.710 Acquired absence of both cervix and uterus; Z88.2 Allergy status to sulfonamides; Z88.1 Allergy status to other antibiotic agents; Z88.8 Allergy status to other drugs, medicaments and biological substances; Z79.2 Long term (current) use of antibiotics; Z79.899 Other long term (current) drug therapy; W19.XXXA Unspecified fall, initial encounter; Y93.89 Activity, other specified; Y92.89 Other specified places as the place of occurrence of the external cause; Y99.8 Other external cause status
CPT/HCPCS: 99283

== ENCOUNTER 2021-09-05 13:02 | Emergency (ER) | payer MEDICARE, MEDICAID ==
[~2021-09-05] VITALS: Ht 152.4 cm; Wt 79.5 kg
[~2021-09-05 13:02] MED LIST changes: -FLUC150T66 PO
[2021-09-05 13:33] VITALS: BP 150/81
[2021-09-05] MEDS ORDERED: acetaminophen 325mg tablet PO ONE (15:00)
[2021-09-05] MEDS ORDERED: SOTROVIMAB 500mg injection 500 MG in normal saline 100ml IV soln 100 ML IV ONE (17:10)
== END 2021-09-05 19:01 | disposition home or self-care (01) ==
LOC: ER 13:03
DX: U07.1 COVID-19 (principal); R50.9 Fever, unspecified; J45.909 Unspecified asthma, uncomplicated; E11.9 Type 2 diabetes mellitus without complications; I10 Essential (primary) hypertension; G89.29 Other chronic pain; Z87.410 Personal history of cervical dysplasia; Z90.710 Acquired absence of both cervix and uterus; Z86.73 Personal history of transient ischemic attack (TIA), and cerebral infarction without residual deficits; Z88.2 Allergy status to sulfonamides; Z88.8 Allergy status to other drugs, medicaments and biological substances; Z91.013 Allergy to seafood; Z79.899 Other long term (current) drug therapy; Z79.2 Long term (current) use of antibiotics
CPT/HCPCS: 71045; 87635; 99284; C9803; J3490; M0247; Q0247

== ENCOUNTER 2021-09-07 15:24 | Emergency (ER) | payer MEDICARE, MEDICAID ==
[~2021-09-07] VITALS: Ht 152.4 cm; Wt 77.1 kg
[2021-09-07] MEDS ORDERED: acetaminophen 325mg tablet PO ONE (16:20)
[2021-09-07] MEDS ORDERED: aspirin 325mg tablet PO ONE (16:20)
[2021-09-07 16:30] LABS: BASOPHILS % (AUTO) 0.5 % (0-1); EOSINOPHILS # (AUTO) 0.1 X10'3 (0-0.9); EOSINOPHILS % (AUTO) 3.1 % (0-6); HEMATOCRIT 30.6 % (35.0-45.0); HEMOGLOBIN 10.2 g/dl (12.0-16.0); LYMPHOCYTES # (AUTO) 0.6 X10'3 (1.1-4.8); LYMPHOCYTES % (AUTO) 15.8 % (21-51); MEAN CORPUSCULAR HEMOGLOBIN 29.1 PG (27.0-31.0); MEAN CORPUSCULAR HGB CONC 33.3 g/dL (33.0-36.5); MEAN CORPUSCULAR VOLUME 87.3 FL (78-98); MEAN PLATELET VOLUME 7.6 FL (7.4-10.4); MONOCYTES # (AUTO) 0.4 X10'3 (0-0.9); MONOCYTES % (AUTO) 9.7 % (2-12); NEUTROPHILS # (AUTO) 2.8 X10'3 (1.8-7.7); NEUTROPHILS % (AUTO) 70.9 % (42-75); PLATELET COUNT 221 X10'3 (140-440); RED CELL DISTRIBUTION WIDTH 15.5 % (11.5-14.5); WHITE BLOOD COUNT 3.9 X10'3 (4.5-11.0)
[2021-09-07 16:43] LABS: APTT 26 SECONDS (22-32)
[2021-09-07 16:44] LABS: ALANINE AMINOTRANSFERASE 28 U/L (12-78); ALBUMIN 3.7 G/DL (3.4-5.0); ALBUMIN/GLOBULIN RATIO 1.1 (1.1-1.5); ALKALINE PHOSPHATASE 183 IU/L (46-116); ANION GAP 9 (8-16); ASPARTATE AMINO TRANSFERASE 18 U/L (10-37); BILIRUBIN,TOTAL 0.5 MG/DL (0.1-1.0); BLOOD UREA NITROGEN 15 MG/DL (7-18); BUN/CREATININE RATIO 17.2 (6.6-38.0); CALCIUM 8.6 MG/DL (8.5-10.1); CHLORIDE 105 MMOL/L (99-107); CREATININE 0.87 MG/DL (0.40-0.90); GLUCOSE 141 MG/DL (70-104); POTASSIUM 4.1 MMOL/L (3.5-5.1); SODIUM 142 MMOL/L (135-145); TOTAL CARBON DIOXIDE 28.4 MMOL/L (24-32); eGFR 67 ML/MIN
[2021-09-07 18:01] VITALS: BP 153/79
[2021-09-07 19:16] LABS: D-DIMER 0.65 MG/L FEU (0-0.50)
[2021-09-07] MEDS ORDERED: iohexol 350MG/ML 100ml bottle IV ONE (19:50)
== END 2021-09-07 21:23 | disposition home or self-care (01) ==
LOC: ER 15:24
DX: U07.1 COVID-19 (principal); R07.89 Other chest pain; I10 Essential (primary) hypertension; E11.9 Type 2 diabetes mellitus without complications; F12.90 Cannabis use, unspecified, uncomplicated; G89.29 Other chronic pain; Z87.410 Personal history of cervical dysplasia; Z90.710 Acquired absence of both cervix and uterus; Z88.2 Allergy status to sulfonamides; Z88.8 Allergy status to other drugs, medicaments and biological substances; Z79.2 Long term (current) use of antibiotics; Z79.899 Other long term (current) drug therapy
CPT/HCPCS: 36415; 71045; 71275; 80053; 83880; 84145; 84484; 85025; 85379; 85610; 85730; 93005; 99285; Q9967

== ENCOUNTER 2021-10-25 14:03 | Emergency (ER) | payer MEDICARE, MEDICAID ==
[~2021-10-25] VITALS: Ht 152.4 cm; Wt 77.3 kg
[2021-10-25 14:22] VITALS: BP 147/75
[2021-10-25] MEDS ORDERED: bacitracin 15gm ointment TP ONE (14:35)
== END 2021-10-25 14:58 | disposition home or self-care (01) ==
LOC: ER 14:03
DX: M79.674 Pain in right toe(s) (principal); I10 Essential (primary) hypertension; E11.9 Type 2 diabetes mellitus without complications; G89.29 Other chronic pain; F41.9 Anxiety disorder, unspecified; F32.A Depression, unspecified; F12.90 Cannabis use, unspecified, uncomplicated; Z85.41 Personal history of malignant neoplasm of cervix uteri; Z90.710 Acquired absence of both cervix and uterus; Z88.2 Allergy status to sulfonamides; Z88.1 Allergy status to other antibiotic agents; Z88.8 Allergy status to other drugs, medicaments and biological substances; Z79.2 Long term (current) use of antibiotics; Z79.899 Other long term (current) drug therapy
CPT/HCPCS: 99281

== ENCOUNTER 2022-01-22 21:41 | Emergency (ER) | payer MEDICARE, MEDICAID ==
[~2022-01-22] VITALS: Ht 152.4 cm; Wt 79.5 kg
[2022-01-22 22:09] LABS: BASOPHILS % (AUTO) 0.7 % (0-1); EOSINOPHILS # (AUTO) 0.3 X10'3 (0-0.9); EOSINOPHILS % (AUTO) 4.9 % (0-6); HEMOGLOBIN 11.3 g/dl (12.0-16.0); LYMPHOCYTES # (AUTO) 1.2 X10'3 (1.1-4.8); LYMPHOCYTES % (AUTO) 21.5 % (21-51); MEAN CORPUSCULAR HEMOGLOBIN 25.3 PG (27.0-31.0); MEAN CORPUSCULAR HGB CONC 32.4 g/dL (33.0-36.5); MEAN CORPUSCULAR VOLUME 78.2 FL (78-98); MEAN PLATELET VOLUME 7.7 FL (7.4-10.4); MONOCYTES # (AUTO) 0.5 X10'3 (0-0.9); MONOCYTES % (AUTO) 8.4 % (2-12); NEUTROPHILS # (AUTO) 3.6 X10'3 (1.8-7.7); NEUTROPHILS % (AUTO) 64.5 % (42-75); PLATELET COUNT 238 X10'3 (140-440); RED BLOOD COUNT 4.48 X10'6 (4.20-5.60); RED CELL DISTRIBUTION WIDTH 16.7 % (11.5-14.5); WHITE BLOOD COUNT 5.5 X10'3 (4.5-11.0)
[2022-01-22 22:27] LABS: ALANINE AMINOTRANSFERASE 29 U/L (12-78); ALBUMIN 4.1 G/DL (3.4-5.0); ALBUMIN/GLOBULIN RATIO 1.3 (1.1-1.5); ALKALINE PHOSPHATASE 125 IU/L (46-116); ANION GAP 10 (8-16); ASPARTATE AMINO TRANSFERASE 16 U/L (10-37); BILIRUBIN,TOTAL 0.3 MG/DL (0.1-1.0); BLOOD UREA NITROGEN 18 MG/DL (7-18); BUN/CREATININE RATIO 18.8 (6.6-38.0); CALCIUM 8.9 MG/DL (8.5-10.1); CHLORIDE 104 MMOL/L (99-107); CREATININE 0.96 MG/DL (0.40-0.90); GLUCOSE 84 MG/DL (70-104); SODIUM 141 MMOL/L (135-145); TOTAL PROTEIN 7.2 G/DL (6.4-8.2); eGFR 60 ML/MIN
[2022-01-22 22:52] LABS: CLARITY,URINE CLEAR (Clear); COLOR,URINE STRAW (Yellow); GLUCOSE, URINE >=1000 mg/dl (Neg); KETONES,URINE NEGATIVE (Neg); LEUKOCYTE ESTERASE ,URINE NEGATIVE (Neg); NITRITES, URINE NEGATIVE (Neg); OCCULT BLOOD,URINE NEGATIVE (Neg); PROTEIN,URINE NEGATIVE (Neg); UA COLLECTION TYPE CLN CATCH MIDSTREAM; UROBILINOGEN,URINE 0.2 E.U/dL (0.2-1.0)
[2022-01-22 23:08] LABS: BACTERIA,URINE NONE SEEN /HPF (Neg); RBC,URINE 0-2 /HPF (0-2); SQUAMOUS EPITHELIAL CELL,UR FEW /LPF (FEW); WBC,URINE NONE SEEN /HPF (0-4)
[2022-01-22] MEDS ORDERED: ondansetron 4mg rapidly disintigrating tab PO ONE (23:40)
[2022-01-22] MEDS ORDERED: meclizine 12.5mg tablet PO ONE (23:40)
[2022-01-23] MEDS ORDERED: ONDA4TAB12 PO (00:13)
[2022-01-23] MEDS ORDERED: MECL-159 PO (00:13)
[2022-01-23 00:46] VITALS: BP 165/83
== END 2022-01-23 00:47 | disposition home or self-care (01) ==
LOC: ER 21:41
DX: R42 Dizziness and giddiness (principal); R51.9 Headache, unspecified; R53.1 Weakness; R11.0 Nausea; E11.42 Type 2 diabetes mellitus with diabetic polyneuropathy; I10 Essential (primary) hypertension; G89.29 Other chronic pain; F41.9 Anxiety disorder, unspecified; F32.A Depression, unspecified; F12.90 Cannabis use, unspecified, uncomplicated; Z90.710 Acquired absence of both cervix and uterus; Z85.41 Personal history of malignant neoplasm of cervix uteri; Z88.2 Allergy status to sulfonamides; Z88.1 Allergy status to other antibiotic agents; Z88.8 Allergy status to other drugs, medicaments and biological substances; Z79.2 Long term (current) use of antibiotics; Z79.899 Other long term (current) drug therapy
CPT/HCPCS: 36415; 70450; 71045; 80053; 81001; 82948; 83880; 84484; 85025; 93005; 99285; J8597

== ENCOUNTER 2022-05-18 13:35 | Emergency (ER) | payer BC, MEDICAID ==
[~2022-05-18] VITALS: Ht 152.4 cm; Wt 79.5 kg
[~2022-05-18 13:35] MED LIST changes: +MECL-159 PO; -MYCOL30CR TP; +NYST30CR35 TP; +ONDA4TAB12 PO
[2022-05-18 13:43] VITALS: BP 167/98
[2022-05-18 15:30] LABS: CLARITY,URINE CLEAR (Clear); GLUCOSE, URINE NEGATIVE (Neg); KETONES,URINE NEGATIVE (Neg); LEUKOCYTE ESTERASE ,URINE NEGATIVE (Neg); NITRITES, URINE NEGATIVE (Neg); OCCULT BLOOD,URINE NEGATIVE (Neg); PROTEIN,URINE NEGATIVE (Neg); UROBILINOGEN,URINE 0.2 E.U/dL (0.2-1.0)
[2022-05-18] MEDS ORDERED: ondansetron 4mg rapidly disintigrating tab PO ONE (15:30)
[2022-05-18 15:45] LABS: COLOR,URINE STRAW (Yellow); UA COLLECTION TYPE CLN CATCH MIDSTREAM
[2022-05-18 16:11] LABS: BASOPHILS # (AUTO) 0.1 X10'3 (0-0.2); BASOPHILS % (AUTO) 1.1 % (0-1); EOSINOPHILS # (AUTO) 0.2 X10'3 (0-0.9); EOSINOPHILS % (AUTO) 2.7 % (0-6); HEMATOCRIT 40.2 % (35.0-45.0); HEMOGLOBIN 13.4 g/dl (12.0-16.0); LYMPHOCYTES # (AUTO) 1.3 X10'3 (1.1-4.8); LYMPHOCYTES % (AUTO) 16.7 % (21-51); MEAN CORPUSCULAR HGB CONC 33.5 g/dL (33.0-36.5); MEAN CORPUSCULAR VOLUME 83.7 FL (78-98); MEAN PLATELET VOLUME 7.9 FL (7.4-10.4); MONOCYTES # (AUTO) 0.5 X10'3 (0-0.9); MONOCYTES % (AUTO) 6.7 % (2-12); NEUTROPHILS # (AUTO) 5.7 X10'3 (1.8-7.7); NEUTROPHILS % (AUTO) 72.8 % (42-75); PLATELET COUNT 204 X10'3 (140-440); RED CELL DISTRIBUTION WIDTH 19.2 % (11.5-14.5); WHITE BLOOD COUNT 7.8 X10'3 (4.5-11.0)
[2022-05-18 16:29] LABS: ALANINE AMINOTRANSFERASE 32 U/L (12-78); ALBUMIN 4.4 G/DL (3.4-5.0); ALBUMIN/GLOBULIN RATIO 1.4 (1.1-1.5); ALKALINE PHOSPHATASE 138 IU/L (46-116); ASPARTATE AMINO TRANSFERASE 17 U/L (10-37); BILIRUBIN,TOTAL 0.5 MG/DL (0.1-1.0); BLOOD UREA NITROGEN 15 MG/DL (7-18); BUN/CREATININE RATIO 19.7 (6.6-38.0); CALCIUM 9.9 MG/DL (8.5-10.1); CREATININE 0.76 MG/DL (0.40-0.90); GLUCOSE 95 MG/DL (70-104); TOTAL CARBON DIOXIDE 29.5 MMOL/L (24-32); TOTAL PROTEIN 7.5 G/DL (6.4-8.2); eGFR 79 ML/MIN
[2022-05-18 16:35] LABS: ANION GAP 9 (8-16)
[2022-05-18] MEDS ORDERED: normal saline 1000ml 1,000 ML IV ONE (16:35)
[2022-05-18 16:36] LABS: SODIUM 139 MMOL/L (135-145)
[2022-05-18] MEDS ORDERED: ONDA4TAB12 PO (16:36)
[2022-05-18 16:37] LABS: CHLORIDE 101 MMOL/L (99-107)
[2022-05-18 17:11] LABS: ANISOCYTOSIS 2+; PLATELET ESTIMATE NORMAL; POLYCHROMASIA FEW
== END 2022-05-18 18:20 | disposition home or self-care (01) ==
LOC: ER 13:35
DX: B34.9 Viral infection, unspecified (principal); Z20.822 Contact with and (suspected) exposure to COVID-19; R51.9 Headache, unspecified; R11.2 Nausea with vomiting, unspecified; R19.7 Diarrhea, unspecified; I10 Essential (primary) hypertension; E11.42 Type 2 diabetes mellitus with diabetic polyneuropathy; G89.29 Other chronic pain; F41.9 Anxiety disorder, unspecified; F32.A Depression, unspecified; F12.90 Cannabis use, unspecified, uncomplicated; Z85.41 Personal history of malignant neoplasm of cervix uteri; Z90.710 Acquired absence of both cervix and uterus; Z88.2 Allergy status to sulfonamides; Z88.1 Allergy status to other antibiotic agents; Z88.8 Allergy status to other drugs, medicaments and biological substances; Z79.2 Long term (current) use of antibiotics; Z79.899 Other long term (current) drug therapy
CPT/HCPCS: 36415; 80053; 81003; 84484; 85008; 85025; 87502; 87503; 87635; 96360; 99283; C9803; J7030

== ENCOUNTER 2022-06-26 16:59 | Emergency (ER) | payer BC, MEDICAID ==
[~2022-06-26] VITALS: Ht 152.4 cm; Wt 81.8 kg
[2022-06-26] MEDS ORDERED: diphenhydrAMINE 50 mg/ml inj IV ONE (18:15)
[2022-06-26] MEDS ORDERED: ondansetron/PF 4mg/2ml inj IV ONE (18:15)
[2022-06-26] MEDS ORDERED: normal saline 1000ml 1,000 ML IV ONE (18:15)
[2022-06-26] MEDS ORDERED: ketorolac trometh. 30mg/ml inj. IV ONE (18:15)
[2022-06-26] MEDS ORDERED: SUMAtriptan 25 MG tablet PO ONE (18:55)
[2022-06-26] MEDS ORDERED: diazepam inj 5 MG/ML inj. IV ONE (18:55)
--- NOTE | 2022-06-26 19:20 | NUR ---
PT PLACED ON CHIEF FUNDRAISING OFFICER FOR MONITORING POST VALIUM ADMINISTRATION.
[2022-06-26] MEDS ORDERED: SUMA100T16 PO (20:20)
[2022-06-26 20:43] VITALS: BP 134/78
== END 2022-06-26 20:50 | disposition home or self-care (01) ==
LOC: ER 17:00
DX: R51.9 Headache, unspecified (principal); R11.0 Nausea; R42 Dizziness and giddiness; E11.42 Type 2 diabetes mellitus with diabetic polyneuropathy; I10 Essential (primary) hypertension; F41.9 Anxiety disorder, unspecified; F32.A Depression, unspecified; F12.90 Cannabis use, unspecified, uncomplicated; Z85.41 Personal history of malignant neoplasm of cervix uteri; Z90.710 Acquired absence of both cervix and uterus; Z88.2 Allergy status to sulfonamides; Z88.1 Allergy status to other antibiotic agents; Z88.8 Allergy status to other drugs, medicaments and biological substances; Z79.2 Long term (current) use of antibiotics; Z79.899 Other long term (current) drug therapy
CPT/HCPCS: 96361; 96374; 96375; 99284; J1200; J1885; J2405; J3360; J7030

== ENCOUNTER 2022-08-03 17:35 | Emergency (ER) | payer BC, MEDICAID ==
[~2022-08-03] VITALS: Ht 152.4 cm; Wt 78.6 kg
[~2022-08-03 17:35] MED LIST changes: +SUMA100T16 PO
[2022-08-03 18:02] VITALS: BP 177/94
--- NOTE | 2022-08-03 19:59 | NUR ---
PT CAME TO [facility], STATES SHE IS GETTING SHAKY, THINKS HER BGLU IS GETTING LOW, BROUGHT HER SOME MILK AND A SANDWICH
== END 2022-08-03 22:29 | disposition left against medical advice (07) ==
LOC: ER 17:35
DX: R51.9 Headache, unspecified (principal); Z53.21 Procedure and treatment not carried out due to patient leaving prior to being seen by health care provider

== ENCOUNTER 2024-05-14 15:09 | Emergency (ER) | payer MEDICARE, MEDICAID ==
[~2024-05-14] VITALS: Ht 162.6 cm; Wt 75.0 kg
[~2024-05-14 15:09] MED LIST changes: -GABA-534 PO; +GABA-535 PO; -MECL-159 PO; +MECL-302 PO; +ONDA-243 PO; -ONDA4TAB12 PO
[2024-05-14 15:12] VITALS: BP 166/91; TEMP 97.8
[2024-05-14] MEDS ORDERED: CEPH-585 PO (15:54)
[2024-05-14 16:23] VITALS: PULSE 68; RESP 16; O2SAT 99
== END 2024-05-14 16:10 | disposition home or self-care (01) ==
LOC: ER 15:09
DX: L73.9 Follicular disorder, unspecified (principal); E11.42 Type 2 diabetes mellitus with diabetic polyneuropathy; I10 Essential (primary) hypertension; G89.29 Other chronic pain; F41.9 Anxiety disorder, unspecified; F32.A Depression, unspecified; F12.90 Cannabis use, unspecified, uncomplicated; Z90.710 Acquired absence of both cervix and uterus; Z85.89 Personal history of malignant neoplasm of other organs and systems; Z88.2 Allergy status to sulfonamides; Z88.8 Allergy status to other drugs, medicaments and biological substances; Z79.899 Other long term (current) drug therapy; Z79.2 Long term (current) use of antibiotics
CPT/HCPCS: 99284

== ENCOUNTER 2024-06-17 14:23 | Inpatient (IN) | payer MEDICARE, MEDICAID ==
[~2024-06-17] VITALS: Ht 149.9 cm; Wt 78.4 kg
[2024-06-17 16:16] LABS: BASOPHILS # (AUTO) 0.1 X10'3 (0-0.2); BASOPHILS % (AUTO) 0.7 % (0-1); EOSINOPHILS # (AUTO) 0.2 X10'3 (0-0.9); EOSINOPHILS % (AUTO) 1.9 % (0-6); HEMATOCRIT 44.2 % (35.0-45.0); HEMOGLOBIN 15.1 g/dl (12.0-16.0); LYMPHOCYTES # (AUTO) 0.9 X10'3 (1.1-4.8); LYMPHOCYTES % (AUTO) 11.5 % (21-51); MEAN CORPUSCULAR HEMOGLOBIN 31.3 PG (27.0-31.0); MEAN CORPUSCULAR HGB CONC 34.1 g/dL (33.0-36.5); MEAN CORPUSCULAR VOLUME 91.6 FL (78-98); MEAN PLATELET VOLUME 8.4 FL (7.4-10.4); MONOCYTES # (AUTO) 0.6 X10'3 (0-0.9); MONOCYTES % (AUTO) 7.5 % (2-12); NEUTROPHILS # (AUTO) 6.5 X10'3 (1.8-7.7); NEUTROPHILS % (AUTO) 78.4 % (42-75); PLATELET COUNT 263 X10'3 (140-440); RED BLOOD COUNT 4.83 X10'6 (4.20-5.60); RED CELL DISTRIBUTION WIDTH 14.6 % (11.5-14.5); WHITE BLOOD COUNT 8.2 X10'3 (4.5-11.0)
[2024-06-17 16:21] LABS: BILIRUBIN,URINE NEGATIVE (Neg); CLARITY,URINE CLEAR (Clear); COLOR,URINE YELLOW (Yellow); GLUCOSE, URINE >=1000 mg/dl (Neg); KETONES,URINE TRACE mg/dl (Neg); LEUKOCYTE ESTERASE ,URINE NEGATIVE (Neg); NITRITES, URINE NEGATIVE (Neg); OCCULT BLOOD,URINE NEGATIVE (Neg); PROTEIN,URINE NEGATIVE (Neg); UROBILINOGEN,URINE 0.2 E.U/dL (0.2-1.0)
[2024-06-17 16:22] LABS: URINE HCG NEGATIVE (NEG)
[2024-06-17 16:24] LABS: UA COLLECTION TYPE CLN CATCH MIDSTREAM
[2024-06-17 16:26] LABS: SQUAMOUS EPITHELIAL CELL,UR MODERATE /LPF (FEW)
[2024-06-17 16:27] LABS: BACTERIA,URINE NONE SEEN /HPF (Neg); RBC,URINE 0-2 /HPF (0-2); WBC,URINE 0-4 /HPF (0-4)
[2024-06-17 16:36] LABS: URINE AMPHETAMINE SCREEN NEGATIVE (Neg); URINE BARBITUATE SCREEN NEGATIVE (Neg); URINE BENZODIAZEPINES SCREEN NEGATIVE (Neg); URINE CANNABINOID SCREEN POSITIVE (Neg); URINE COCAINE SCREEN NEGATIVE (Neg); URINE METHADONE SCREEN NEGATIVE (Neg); URINE OPIATE SCREEN POSITIVE (Neg); URINE PHENCYCLIDINE SCREEN NEGATIVE (Neg)
[2024-06-17] MEDS ORDERED: NYSTOP (16:41)
[2024-06-17] MEDS ORDERED: METO-395 PO (16:41)
[2024-06-17] MEDS ORDERED: LISI40TA13 PO (16:41)
[2024-06-17] MEDS ORDERED: SUMA25TA9 (16:41)
[2024-06-17] MEDS ORDERED: AMLO10TA13 PO (16:41)
[2024-06-17] MEDS ORDERED: HYDR-3927 PO (16:41)
[2024-06-17] MEDS ORDERED: KETO120S5 TOP (16:41)
[2024-06-17] MEDS ORDERED: TRAZ-256 PO (16:41)
[2024-06-17] MEDS ORDERED: NITR0.3T10 (16:41)
[2024-06-17] MEDS ORDERED: LANTUS SQ (16:41)
[2024-06-17] MEDS ORDERED: EMPA10TA PO (16:41)
[2024-06-17] MEDS ORDERED: DULO30CA52 PO (16:41)
[2024-06-17] MEDS ORDERED: HYDR-3973 PO (16:41)
[2024-06-17 16:45] LABS: ALBUMIN 4.3 G/DL (3.4-5.0); ANION GAP 6 (8-16); BLOOD UREA NITROGEN 8 MG/DL (7-18); BUN/CREATININE RATIO 8.1 (10.0-20.0); CALCIUM 8.9 MG/DL (8.5-10.1); CHLORIDE 100 MMOL/L (99-107); CREATININE 0.99 MG/DL (0.40-0.90); ETHANOL < 10 MG/DL (<10); GLUCOSE 206 MG/DL (70-104); POTASSIUM 3.7 MMOL/L (3.5-5.1); SODIUM 137 MMOL/L (135-145); TOTAL CARBON DIOXIDE 31.5 MMOL/L (24-32); eCRCL 42 ML/MIN; eGFR 57 ML/MIN
[2024-06-17] MEDS: LORazepam 1 MG tablet PO ONE (17:03)
[2024-06-17] MEDS: hydrOXYzine 25 MG tablet PO SCH (21:00)
[2024-06-17] MEDS: traZODone 50mg tablet PO SCH (21:20)
[2024-06-17] MEDS: gabapentin 400mg capsule PO SCH (21:20)
[2024-06-17] MEDS: acetaminophen 325mg tablet PO ONE (21:21)
[2024-06-18] MEDS ORDERED: non-formulary drug (Duloxetine HCl 1 CAP) PO SCH (08:00)
[2024-06-18] MEDS: metoprolol succinate 25mg (24-HOUR) SR. Tablet PO SCH (08:53)
[2024-06-18] MEDS: EMPAGLIFLOZIN 10 MG TABLET PO SCH (08:53)
[2024-06-18] MEDS: amLODIPine 5mg tablet PO SCH (08:54)
[2024-06-18] MEDS: duloxetine 30mg CAPSULE.DR PO SCH (08:55)
[2024-06-18] MEDS: lisinopril 20mg tablet PO SCH (08:56)
[2024-06-18] MEDS: acetaminophen 325mg tablet PO PRN (11:49)
[2024-06-18] MEDS: docusate sod 100mg capsule PO SCH (20:28)
[2024-06-19 07:00] VITALS: RESP 16; O2SAT 97
[2024-06-19 08:00] VITALS: BP 125/66; PULSE 89; RESP 16; TEMP 97.6; O2SAT 97
[2024-06-19 19:00] VITALS: RESP 18; O2SAT 97
[2024-06-19 20:00] VITALS: BP 136/85; PULSE 82; RESP 18; TEMP 98.2; O2SAT 97
[2024-06-19] MEDS: insulin glargine (Lantus) pen - multi-dose SQ SCH (20:58)
[2024-06-19] MEDS: duloxetine 30mg CAPSULE.DR PO SCH (21:04)
[2024-06-19] MEDS: HYDROcodone/acetaminophen 10/325mg tab PO PRN (21:11)
[2024-06-20 06:22] LABS: HEMOGLOBIN A1C 5.7 % (4.5-6.2)
[2024-06-20 07:30] VITALS: BP 117/66; PULSE 96; RESP 14; TEMP 97.4; O2SAT 100
[2024-06-20] MEDS ORDERED: nystatin 15 GM powder TP SCH (12:55)
[2024-06-20] MEDS: nystatin 15 GM powder TP SCH (13:33)
[2024-06-20 19:00] VITALS: BP 106/89; PULSE 78; RESP 18; TEMP 98.6; O2SAT 97
[2024-06-21 07:00] VITALS: RESP 14; O2SAT 97
[2024-06-21 08:00] VITALS: BP 97/57; PULSE 86; RESP 14; TEMP 97.3; O2SAT 97
[2024-06-21] MEDS: ketoconazole (Nizoral) shampoo TP SCH (08:00)
[2024-06-21] MEDS ORDERED: ketoconazole (Nizoral) shampoo TP PRN (15:00)
[2024-06-21] MEDS: calcium carbonate 500mg chew tablet PO PRN (16:16)
[2024-06-21 19:00] VITALS: BP 147/95; PULSE 93; RESP 16; TEMP 98.5; O2SAT 98
[2024-06-21] MEDS: INSULIN LISPRO 100 UNIT/ML INSULN.PEN MULTI-DOSE SQ SCH (21:06)
[2024-06-21] MEDS: amLODIPine 5mg tablet PO ONE (21:14)
[2024-06-21] MEDS: LORazepam 0.5 MG tablet PO PRN (21:16)
[2024-06-21 23:00] VITALS: BP 160/80; PULSE 80
[2024-06-21] MEDS: lisinopril 20mg tablet PO ONE (23:40)
[2024-06-22 01:09] VITALS: BP 140/78; PULSE 78
[2024-06-22 07:00] VITALS: RESP 16; O2SAT 94
[2024-06-22] MEDS: pantoprazole 40mg Tablet.DR PO SCH (07:33)
[2024-06-22 08:00] VITALS: BP 118/53; PULSE 94; RESP 16; TEMP 98.5; O2SAT 96
[2024-06-22 19:00] VITALS: BP 116/73; PULSE 85; RESP 16; TEMP 97; O2SAT 99
[2024-06-23 00:37] VITALS: BP 116/73; PULSE 85; RESP 16; TEMP 97.5; O2SAT 99
[2024-06-23 07:00] VITALS: BP 121/63; PULSE 94; RESP 16; TEMP 97.3; O2SAT 95
[2024-06-23 19:00] VITALS: RESP 18; O2SAT 99
[2024-06-23 20:00] VITALS: BP 132/70; PULSE 83; RESP 18; TEMP 97.4; O2SAT 99
[2024-06-24 07:00] VITALS: BP 135/70; PULSE 97; RESP 16; TEMP 97; O2SAT 94
[2024-06-24] MEDS: lurasidone 20mg tablet PO SCH (07:47)
[2024-06-24 19:00] VITALS: RESP 16; O2SAT 82
[2024-06-24 20:00] VITALS: BP 116/61; PULSE 80; RESP 16; TEMP 97; O2SAT 92
[2024-06-25 07:00] VITALS: RESP 16; O2SAT 96
[2024-06-25 08:00] VITALS: BP 91/64; PULSE 94; RESP 16; TEMP 96.9; O2SAT 96
[2024-06-25 09:00] VITALS: RESP 16; O2SAT 96
[2024-06-25 19:00] VITALS: RESP 18; O2SAT 96
[2024-06-25 20:00] VITALS: BP 136/73; PULSE 103; RESP 16; TEMP 97.3; O2SAT 18
[2024-06-25] MEDS: insulin glargine (Lantus) pen - multi-dose SQ SCH (21:12)
[2024-06-26 07:00] VITALS: BP 147/81; PULSE 115; RESP 14; TEMP 98.1; O2SAT 99
[2024-06-26 19:00] VITALS: RESP 18; O2SAT 96
[2024-06-26 20:00] VITALS: BP 110/78; PULSE 78; RESP 18; TEMP 97.7; O2SAT 96
[2024-06-27 07:00] VITALS: RESP 12; O2SAT 100
[2024-06-27 08:00] VITALS: BP 122/71; PULSE 98; RESP 12; TEMP 97.6; O2SAT 100
[2024-06-27 19:12] VITALS: RESP 20; O2SAT 97
[2024-06-27 19:14] VITALS: BP 103/74; PULSE 84; RESP 20; TEMP 98.7; O2SAT 97
[2024-06-28 07:30] VITALS: BP 128/74; PULSE 96; RESP 16; TEMP 97.7; O2SAT 100
[2024-06-28] MEDS: lurasidone 20mg tablet PO SCH (08:29)
[2024-06-28 19:00] VITALS: BP 109/67; PULSE 81; RESP 16; TEMP 97.1; O2SAT 99
[2024-06-28 21:30] VITALS: BP 109/67; PULSE 81; RESP 16; TEMP 97.1; O2SAT 99
[2024-06-29 07:30] VITALS: BP 114/72; PULSE 86; RESP 16; TEMP 97.5; O2SAT 98
[2024-06-29 09:38] LABS: BASOPHILS % (AUTO) 0.5 % (0-1); EOSINOPHILS # (AUTO) 0.2 X10'3 (0-0.9); EOSINOPHILS % (AUTO) 3.5 % (0-6); HEMATOCRIT 43.2 % (35.0-45.0); HEMOGLOBIN 14.9 g/dl (12.0-16.0); MEAN CORPUSCULAR HEMOGLOBIN 31.5 PG (27.0-31.0); MEAN CORPUSCULAR HGB CONC 34.4 g/dL (33.0-36.5); MEAN CORPUSCULAR VOLUME 91.5 FL (78-98); MEAN PLATELET VOLUME 9.9 FL (7.4-10.4); MONOCYTES # (AUTO) 0.5 X10'3 (0-0.9); MONOCYTES % (AUTO) 6.5 % (2-12); NEUTROPHILS # (AUTO) 5.2 X10'3 (1.8-7.7); NEUTROPHILS % (AUTO) 75.5 % (42-75); PLATELET COUNT 261 X10'3 (140-440); RED BLOOD COUNT 4.72 X10'6 (4.20-5.60); RED CELL DISTRIBUTION WIDTH 13.9 % (11.5-14.5)
[2024-06-29 10:27] LABS: ALANINE AMINOTRANSFERASE 34 U/L (12-78); ALBUMIN 3.9 G/DL (3.4-5.0); ALBUMIN/GLOBULIN RATIO 1.1 (1.1-1.5); ALKALINE PHOSPHATASE 172 IU/L (46-116); ANION GAP 8 (8-16); ASPARTATE AMINO TRANSFERASE 20 U/L (10-37); BILIRUBIN,TOTAL 0.4 MG/DL (0.1-1.0); BLOOD UREA NITROGEN 33 MG/DL (7-18); CALCIUM 9.1 MG/DL (8.5-10.1); CHLORIDE 98 MMOL/L (99-107); CREATININE 1.03 MG/DL (0.40-0.90); GLUCOSE 229 MG/DL (70-104); POTASSIUM 4.7 MMOL/L (3.5-5.1); SODIUM 134 MMOL/L (135-145); TOTAL CARBON DIOXIDE 28.2 MMOL/L (24-32); TOTAL PROTEIN 7.6 G/DL (6.4-8.2); eCRCL 40 ML/MIN; eGFR 55 ML/MIN
[2024-06-29 19:00] VITALS: BP 104/70; PULSE 78; RESP 16; TEMP 98.7; O2SAT 96
[2024-06-29] MEDS: insulin glargine (Lantus) pen - multi-dose SQ SCH (20:39)
[2024-06-29] MEDS: azithromycin 250mg tablet PO SCH (21:40)
[2024-06-30 07:00] VITALS: RESP 14
[2024-06-30 08:00] VITALS: BP 112/70; PULSE 92; RESP 14; TEMP 97.1; O2SAT 98
[2024-06-30 19:00] VITALS: BP 126/76; PULSE 92; RESP 20; RESP 22; TEMP 98.5; O2SAT 96
[2024-06-30 22:57] VITALS: BP 123/78; PULSE 92; RESP 22; TEMP 98.5; O2SAT 96
[2024-07-01 07:00] VITALS: RESP 12; O2SAT 100
[2024-07-01 08:00] VITALS: BP 126/77; PULSE 88; RESP 12; TEMP 97.7; O2SAT 100
[2024-07-01] MEDS: LIDOcaine 2% jelly 6ml syringe ***for topical use only MM ONE (08:05)
[2024-07-01] MEDS: insulin glargine (Lantus) pen - multi-dose SQ SCH (21:05)
[2024-07-01 21:32] VITALS: BP 117/83; PULSE 80; RESP 16; TEMP 97.4; O2SAT 97
[2024-07-01 22:26] VITALS: RESP 16
[2024-07-02 07:24] VITALS: BP 125/96; PULSE 91; RESP 16; TEMP 97.9; O2SAT 98
[2024-07-02 08:40] VITALS: RESP 16; O2SAT 98
[2024-07-02 19:00] VITALS: RESP 16; O2SAT 96
[2024-07-02 20:00] VITALS: BP 116/75; PULSE 77; RESP 16; TEMP 98.3; O2SAT 96
[2024-07-03 07:30] VITALS: BP 120/77; PULSE 82; RESP 12; TEMP 97.9; O2SAT 99
[2024-07-03 07:55] VITALS: RESP 12; O2SAT 99
[2024-07-03 19:00] VITALS: RESP 16; O2SAT 97
[2024-07-03 20:00] VITALS: BP 125/80; PULSE 85; RESP 16; TEMP 97.6; O2SAT 97
[2024-07-03] MEDS: insulin glargine (Lantus) pen - multi-dose SQ SCH (20:44)
[2024-07-04 08:00] VITALS: BP 118/74; PULSE 83; RESP 16; TEMP 97.7; O2SAT 99
[2024-07-04 19:00] VITALS: RESP 20; O2SAT 94
[2024-07-04 20:00] VITALS: BP 121/72; PULSE 85; RESP 20; TEMP 98.5; O2SAT 94
[2024-07-05 07:30] VITALS: BP 106/71; PULSE 82; RESP 20; TEMP 97.8; O2SAT 99
[2024-07-05 19:00] VITALS: BP 106/71; PULSE 82; RESP 18; RESP 20; TEMP 97.8; O2SAT 99
[2024-07-06 07:30] VITALS: BP 103/60; PULSE 82; RESP 16; TEMP 98.4; O2SAT 99
[2024-07-06] MEDS ORDERED: DULO30CA52 PO (12:30)
[2024-07-06] MEDS ORDERED: TRAZ-251 PO (12:30)
[2024-07-06] MEDS ORDERED: LURA20TA2 PO (12:30)
[2024-07-06] MEDS ORDERED: HYDR-3927 PO (12:30)
[2024-07-06] MEDS ORDERED: GABA-535 PO (12:30)
[2024-07-06] MEDS ORDERED: METO-395 PO (13:24)
[2024-07-06] MEDS ORDERED: NITR0.3T10 SUBLES (13:24)
[2024-07-06] MEDS ORDERED: SUMA25TA9 PO (13:24)
[2024-07-06] MEDS ORDERED: LISI40TA13 PO (13:24)
[2024-07-06] MEDS ORDERED: AMLO10TA13 PO (13:24)
[2024-07-06] MEDS ORDERED: LANTUS SQ (13:24)
[2024-07-06] MEDS ORDERED: EMPA10TA PO (13:24)
[2024-07-06 19:00] VITALS: RESP 22; O2SAT 98
[2024-07-06 20:00] VITALS: BP 110/72; PULSE 78; RESP 22; TEMP 97.8
[2024-07-07 07:00] VITALS: RESP 16; O2SAT 100
[2024-07-07 08:00] VITALS: BP 120/75; PULSE 86; RESP 16; TEMP 97.7; O2SAT 100
[2024-07-07 14:34] VITALS: RESP 18
== END 2024-07-07 15:08 | disposition home or self-care (01) | DRG 881 ==
LOC: ER 14:24 → ADULT MH 06-19 03:05 → UNDOADMIN 06-19 03:05 → ADULT MH 06-19 06:31
PROVIDERS: ADMIT Psychiatry & Neurology Psychiatry; ATTEND Psychiatry & Neurology Psychiatry
PROC: GZHZZZZ Group Psychotherapy (ICD-10-PCS; principal; 2024-06-19)
PROC: GZ51ZZZ Individual Psychotherapy, Behavioral (ICD-10-PCS; 2024-06-19)
DX: F32.9 Major depressive disorder, single episode, unspecified (principal); R45.851 Suicidal ideations; Z59.01 Sheltered homelessness; L03.818 Cellulitis of other sites; E11.42 Type 2 diabetes mellitus with diabetic polyneuropathy; Z20.822 Contact with and (suspected) exposure to COVID-19; I10 Essential (primary) hypertension; F41.9 Anxiety disorder, unspecified; G89.29 Other chronic pain; F12.90 Cannabis use, unspecified, uncomplicated; F14.90 Cocaine use, unspecified, uncomplicated; M79.7 Fibromyalgia; E66.3 Overweight; J45.998 Other asthma; F29 Unspecified psychosis not due to a substance or known physiological condition; K21.9 Gastro-esophageal reflux disease without esophagitis; S81.802A Unspecified open wound, left lower leg, initial encounter; S81.801A Unspecified open wound, right lower leg, initial encounter; X58.XXXA Exposure to other specified factors, initial encounter; Z85.41 Personal history of malignant neoplasm of cervix uteri; Z90.710 Acquired absence of both cervix and uterus; Z88.2 Allergy status to sulfonamides; Z79.899 Other long term (current) drug therapy; Z86.73 Personal history of transient ischemic attack (TIA), and cerebral infarction without residual deficits; Y93.89 Activity, other specified; Y92.89 Other specified places as the place of occurrence of the external cause; Y99.8 Other external cause status; Z88.8 Allergy status to other drugs, medicaments and biological substances
CPT/HCPCS: 36415; 80048; 80053; 80305; 80320; 81001; 81025; 82948; 83036; 84443; 85025; 87081; 87811; 93005; 97116; 97161; 97760; 99285; A4649; A6212; A6446; A6449; C2617; J1815; Q0177

== ENCOUNTER 2024-07-16 08:22 | Emergency (ER) | payer MEDICARE, MEDICAID ==
[~2024-07-16] VITALS: Ht 152.4 cm; Wt 81.8 kg
[~2024-07-16 08:22] MED LIST changes: -AMIT10TA6 PO; +AMLO10TA13 PO; -CLIN-97 PO; +DULO30CA52 PO; -DULO60CA65 PO; +EMPA10TA PO; +HYDR-3927 PO; -HYDR-3972 PO; +HYDR-3973 PO; +KETO120S5 TOP; +LANTUS SQ; -LISI10TA27 PO; +LISI40TA13 PO; -LORA10TA7 PO; +LURA20TA2 PO; -MECL-302 PO; +METO-395 PO; -MULT-1130 PO; -MV/K1COM PO; -OMEP20CA15 PO; -ONDA-243 PO; -SUMA100T16 PO; +SUMA25TA9 PO
[2024-07-16 09:37] LABS: BASOPHILS % (AUTO) 0.3 % (0-1); EOSINOPHILS % (AUTO) 0.5 % (0-6); HEMATOCRIT 36.1 % (35.0-45.0); HEMOGLOBIN 12.7 g/dl (12.0-16.0); LYMPHOCYTES # (AUTO) 0.2 X10'3 (1.1-4.8); LYMPHOCYTES % (AUTO) 8.2 % (21-51); MEAN CORPUSCULAR HEMOGLOBIN 31.3 PG (27.0-31.0); MEAN CORPUSCULAR HGB CONC 35.2 g/dL (33.0-36.5); MEAN CORPUSCULAR VOLUME 89.2 FL (78-98); MEAN PLATELET VOLUME 8.7 FL (7.4-10.4); MONOCYTES # (AUTO) 0.3 X10'3 (0-0.9); NEUTROPHILS # (AUTO) 2.3 X10'3 (1.8-7.7); PLATELET COUNT 118 X10'3 (140-440); RED BLOOD COUNT 4.05 X10'6 (4.20-5.60); WHITE BLOOD COUNT 2.9 X10'3 (4.5-11.0)
[2024-07-16] MEDS ORDERED: ONDA-245 (09:53)
[2024-07-16] MEDS ORDERED: NYST15CR36 TOP (09:53)
[2024-07-16] MEDS ORDERED: KEN0.1O TOP (09:53)
[2024-07-16] MEDS ORDERED: MECL-302 (09:53)
[2024-07-16] MEDS ORDERED: ALBUTEROL (09:53)
[2024-07-16] MEDS ORDERED: NYSPWD TOP (09:53)
[2024-07-16] MEDS ORDERED: HYDR28.484 (09:53)
[2024-07-16] MEDS ORDERED: GABA-1555 PO (09:53)
[2024-07-16] MEDS ORDERED: NAPR-996 PO (09:53)
[2024-07-16] MEDS ORDERED: AZIT-164 PO (09:53)
[2024-07-16 10:04] LABS: ALBUMIN 3.4 G/DL (3.4-5.0); ANION GAP 10 (8-16); BLOOD UREA NITROGEN 8 MG/DL (7-18); BUN/CREATININE RATIO 10.3 (10.0-20.0); CHLORIDE 99 MMOL/L (99-107); CREATININE 0.78 MG/DL (0.40-0.90); ETHANOL < 10 MG/DL (<10); GLUCOSE 243 MG/DL (70-104); POTASSIUM 3.6 MMOL/L (3.5-5.1); SODIUM 136 MMOL/L (135-145); THYROID STIMULATING HORMONE 0.94 ulU/ml (0.34-4.50); TOTAL CARBON DIOXIDE 27.5 MMOL/L (24-32); eCRCL 56 ML/MIN; eGFR 76 ML/MIN
[2024-07-16 10:05] LABS: TOTAL CELLS COUNTED 100
[2024-07-16 10:06] LABS: PLATELET ESTIMATE DECREASED
[2024-07-16 10:08] LABS: URINE HCG NEGATIVE (NEG)
[2024-07-16 10:16] LABS: BILIRUBIN,URINE NEGATIVE (Neg); CLARITY,URINE CLEAR (Clear); COLOR,URINE YELLOW (Yellow); GLUCOSE, URINE >=1000 mg/dl (Neg); KETONES,URINE 40 mg/dl (Neg); LEUKOCYTE ESTERASE ,URINE NEGATIVE (Neg); NITRITES, URINE NEGATIVE (Neg); OCCULT BLOOD,URINE NEGATIVE (Neg); PH,URINE 7.5 (4.8-8.0); PROTEIN,URINE NEGATIVE (Neg); UROBILINOGEN,URINE 0.2 E.U/dL (0.2-1.0)
[2024-07-16 10:19] LABS: UA COLLECTION TYPE NON-SPECIFIED
[2024-07-16 10:22] LABS: URINE AMPHETAMINE SCREEN NEGATIVE (Neg); URINE BARBITUATE SCREEN NEGATIVE (Neg); URINE BENZODIAZEPINES SCREEN NEGATIVE (Neg); URINE CANNABINOID SCREEN POSITIVE (Neg); URINE COCAINE SCREEN NEGATIVE (Neg); URINE METHADONE SCREEN NEGATIVE (Neg); URINE OPIATE SCREEN POSITIVE (Neg); URINE PHENCYCLIDINE SCREEN NEGATIVE (Neg)
[2024-07-16 10:29] LABS: BACTERIA,URINE NONE SEEN /HPF (Neg); RBC,URINE 0-2 /HPF (0-2); SQUAMOUS EPITHELIAL CELL,UR NONE SEEN /LPF (FEW); WBC,URINE 0-4 /HPF (0-4)
[2024-07-16] MEDS ORDERED: HYDR-3686 PO (10:53)
[2024-07-16] MEDS ORDERED: OMEP20CA16 PO (11:04)
[2024-07-16] MEDS ORDERED: DULO60CA65 PO (11:04)
[2024-07-16] MEDS ORDERED: LURA40TA4 PO (11:04)
[2024-07-16] MEDS ORDERED: [UNRECOGNIZED DRUG - CODE] (11:04)
[2024-07-16] MEDS ORDERED: INSU100V9 SQ (11:04)
[2024-07-16] MEDS ORDERED: ONDA-245 PO (11:04)
[2024-07-16] MEDS ORDERED: AMLO10TA13 PO (11:04)
[2024-07-16] MEDS ORDERED: SUMA25TA35 PO (11:04)
[2024-07-16] MEDS: ondansetron 4mg rapidly disintigrating tab PO PRN (12:04)
[2024-07-16] MEDS: acetaminophen 325mg tablet PO PRN (12:04)
[2024-07-16] MEDS ORDERED: SUMAtriptan 25 MG tablet PO PRN (12:40)
[2024-07-16] MEDS: nystatin 15 GM powder TP SCH (19:27)
[2024-07-16] MEDS: gabapentin 400mg capsule PO SCH (19:27)
[2024-07-17] MEDS: benzonatate 100mg capsule PO ONE (03:54)
[2024-07-17] MEDS: hydrOXYzine 25 MG tablet PO PRN (07:06)
[2024-07-17] MEDS: duloxetine 30mg CAPSULE.DR PO SCH (08:31)
[2024-07-17] MEDS: lurasidone 20mg tablet PO SCH (08:32)
[2024-07-17] MEDS: amLODIPine 5mg tablet PO SCH (08:32)
[2024-07-17] MEDS: pantoprazole 40mg Tablet.DR PO SCH (08:32)
[2024-07-17] MEDS: HYDROcodone/acetaminophen 10/325mg tab PO PRN (08:37)
[2024-07-17] MEDS: insulin glargine (Lantus) pen - multi-dose SQ SCH (08:48)
[2024-07-18] MEDS: insulin regular, human 10 units/0.1 ml syringe SQ STA (00:36)
[2024-07-18] MEDS: LORazepam 1 MG tablet PO ONE (01:50)
[2024-07-19] MEDS: traZODone 50mg tablet PO ONE (02:19)
[2024-07-19] MEDS: insulin regular, human 10 units/0.1 ml syringe SQ ONE ×2 (02:44→15:58)
[2024-07-19] MEDS ORDERED: NPH, human insulin isophane inj. SQ ONE (15:45)
[2024-07-19] MEDS ORDERED: insulin glargine (Lantus) pen - multi-dose SQ SCH (21:03)
[2024-07-19] MEDS: insulin glargine (Lantus) pen - multi-dose SQ SCH (21:08)
[2024-07-20] MEDS: traZODone 50mg tablet PO ONE (00:42)
[2024-07-20] MEDS: insulin regular, human 10 units/0.1 ml syringe SQ ONE (08:58)
[2024-07-20] MEDS ORDERED: dextrose 50%-water 50ml dispensing syringe IV PRN ×2 (17:30)
[2024-07-20] MEDS ORDERED: DEXTROSE 15 GM of carb/4 tabs (each vial/BOTTLE has 4 tablets) PO PRN ×2 (17:30)
[2024-07-20] MEDS ORDERED: glucagon, human recombinant 1mg kit SUBCUT PRN (17:30)
[2024-07-20] MEDS: INSULIN LISPRO 100 UNIT/ML INSULN.PEN MULTI-DOSE SQ SCH (18:06)
[2024-07-20] MEDS: traZODone 50mg tablet PO SCH (23:29)
[2024-07-21] MEDS: traZODone 50mg tablet PO SCH (21:51)
[2024-07-22 06:03] VITALS: BP_DIAS 77; O2SAT 96
[2024-07-22 07:57] VITALS: BP_SYST 135; PULSE 96
[2024-07-22 12:46] LABS: BASOPHILS % (AUTO) 0.3 % (0-1); EOSINOPHILS # (AUTO) 0.2 X10'3 (0-0.9); EOSINOPHILS % (AUTO) 2.3 % (0-6); HEMATOCRIT 42.1 % (35.0-45.0); HEMOGLOBIN 14.5 g/dl (12.0-16.0); MEAN CORPUSCULAR HEMOGLOBIN 30.6 PG (27.0-31.0); MEAN CORPUSCULAR HGB CONC 34.3 g/dL (33.0-36.5); MEAN CORPUSCULAR VOLUME 89.1 FL (78-98); MEAN PLATELET VOLUME 8.7 FL (7.4-10.4); MONOCYTES # (AUTO) 0.5 X10'3 (0-0.9); MONOCYTES % (AUTO) 6.9 % (2-12); NEUTROPHILS # (AUTO) 6.1 X10'3 (1.8-7.7); NEUTROPHILS % (AUTO) 77.5 % (42-75); PLATELET COUNT 279 X10'3 (140-440); RED BLOOD COUNT 4.73 X10'6 (4.20-5.60); RED CELL DISTRIBUTION WIDTH 13.2 % (11.5-14.5); WHITE BLOOD COUNT 7.8 X10'3 (4.5-11.0)
[2024-07-22 13:11] LABS: ALANINE AMINOTRANSFERASE 34 U/L (12-78); ALBUMIN 3.6 G/DL (3.4-5.0); ALBUMIN/GLOBULIN RATIO 0.9 (1.1-1.5); ALKALINE PHOSPHATASE 167 IU/L (46-116); ANION GAP 10 (8-16); ASPARTATE AMINO TRANSFERASE 13 U/L (10-37); BILIRUBIN,TOTAL 0.5 MG/DL (0.1-1.0); BLOOD UREA NITROGEN 17 MG/DL (7-18); BUN/CREATININE RATIO 18.5 (10.0-20.0); CALCIUM 9.5 MG/DL (8.5-10.1); CHLORIDE 97 MMOL/L (99-107); CREATININE 0.92 MG/DL (0.40-0.90); GLUCOSE 214 MG/DL (70-104); POTASSIUM 4.4 MMOL/L (3.5-5.1); SODIUM 135 MMOL/L (135-145); TOTAL CARBON DIOXIDE 27.9 MMOL/L (24-32); TOTAL PROTEIN 7.7 G/DL (6.4-8.2); eCRCL 47 ML/MIN; eGFR 62 ML/MIN
[2024-07-22 15:36] VITALS: RESP 16
[2024-07-22 16:04] VITALS: TEMP 97.5
== END 2024-07-22 16:20 ==
LOC: ER 08:22
DX: F29 Unspecified psychosis not due to a substance or known physiological condition (principal); R45.851 Suicidal ideations; U07.1 COVID-19; E11.42 Type 2 diabetes mellitus with diabetic polyneuropathy; F32.A Depression, unspecified; F41.9 Anxiety disorder, unspecified; I10 Essential (primary) hypertension; F12.90 Cannabis use, unspecified, uncomplicated; Z85.41 Personal history of malignant neoplasm of cervix uteri; Z88.2 Allergy status to sulfonamides; Z88.1 Allergy status to other antibiotic agents; Z90.710 Acquired absence of both cervix and uterus
CPT/HCPCS: 36415; 80048; 80053; 80305; 81001; 81025; 82948; 84443; 85007; 85025; 87811; 99285; G0480; J1815; Q0177; 80320

== ENCOUNTER 2024-08-07 15:27 | Emergency (ER) | payer MEDICARE, MEDICAID ==
[~2024-08-07] VITALS: Ht 152.4 cm; Wt 81.8 kg
[~2024-08-07 15:27] MED LIST changes: +ALBUTEROL; -DULO30CA52 PO; +DULO60CA65 PO; -EMPA10TA PO; +GABA-1555 PO; -GABA-535 PO; +HYDR-3686 PO; -HYDR-3927 PO; +INSU100V9 SQ; +KEN0.1O TOP; -KETO120S5 TOP; -LANTUS SQ; -LISI40TA13 PO; -LURA20TA2 PO; +LURA40TA4 PO; -METO-395 PO; +NYSPWD TOP; +NYST15CR36 TOP; -NYST30CR35 TP; +OMEP20CA16 PO; +SUMA25TA35 PO; -SUMA25TA9 PO; -TRAZ-251 PO; +[UNRECOGNIZED DRUG - CODE]
[2024-08-07 16:10] LABS: BASOPHILS % (AUTO) 0.6 % (0-1); EOSINOPHILS # (AUTO) 0.1 X10'3 (0-0.9); EOSINOPHILS % (AUTO) 1.8 % (0-6); HEMATOCRIT 43.3 % (35.0-45.0); HEMOGLOBIN 14.7 g/dl (12.0-16.0); LYMPHOCYTES # (AUTO) 0.8 X10'3 (1.1-4.8); LYMPHOCYTES % (AUTO) 11.2 % (21-51); MEAN CORPUSCULAR HEMOGLOBIN 30.6 PG (27.0-31.0); MEAN CORPUSCULAR HGB CONC 34.1 g/dL (33.0-36.5); MEAN CORPUSCULAR VOLUME 89.8 FL (78-98); MEAN PLATELET VOLUME 8.5 FL (7.4-10.4); MONOCYTES # (AUTO) 0.4 X10'3 (0-0.9); MONOCYTES % (AUTO) 5.8 % (2-12); NEUTROPHILS # (AUTO) 5.7 X10'3 (1.8-7.7); NEUTROPHILS % (AUTO) 80.6 % (42-75); PLATELET COUNT 245 X10'3 (140-440); RED BLOOD COUNT 4.82 X10'6 (4.20-5.60); RED CELL DISTRIBUTION WIDTH 13.5 % (11.5-14.5); WHITE BLOOD COUNT 7.1 X10'3 (4.5-11.0)
[2024-08-07 16:23] LABS: ANION GAP 10 (8-16); BLOOD UREA NITROGEN 12 MG/DL (7-18); BUN/CREATININE RATIO 11.1 (10.0-20.0); CALCIUM 8.9 MG/DL (8.5-10.1); CHLORIDE 99 MMOL/L (99-107); CREATININE 1.08 MG/DL (0.40-0.90); POTASSIUM 4.4 MMOL/L (3.5-5.1); SODIUM 135 MMOL/L (135-145); TOTAL CARBON DIOXIDE 26.1 MMOL/L (24-32); eCRCL 40 ML/MIN; eGFR 52 ML/MIN
[2024-08-07 16:26] LABS: GLUCOSE 429 MG/DL (70-104)
[2024-08-07 20:24] LABS: BILIRUBIN,URINE NEGATIVE (Neg); CLARITY,URINE CLEAR (Clear); COLOR,URINE YELLOW (Yellow); GLUCOSE, URINE >=1000 mg/dl (Neg); KETONES,URINE NEGATIVE (Neg); LEUKOCYTE ESTERASE ,URINE NEGATIVE (Neg); NITRITES, URINE NEGATIVE (Neg); OCCULT BLOOD,URINE NEGATIVE (Neg); PROTEIN,URINE NEGATIVE (Neg); UROBILINOGEN,URINE 0.2 E.U/dL (0.2-1.0)
[2024-08-07 20:39] LABS: UA COLLECTION TYPE CLN CATCH MIDSTREAM
[2024-08-07 20:41] LABS: BACTERIA,URINE NONE SEEN /HPF (Neg); RBC,URINE 0-2 /HPF (0-2); SQUAMOUS EPITHELIAL CELL,UR FEW /LPF (FEW); WBC,URINE 0-4 /HPF (0-4)
[2024-08-07] MEDS ORDERED: CEPH-585 PO (20:48)
[2024-08-07] MEDS: cephalexin 250mg capsule PO ONE (21:14)
[2024-08-07 21:15] VITALS: BP 143/78; PULSE 66; TEMP 98.4; O2SAT 100
[2024-08-07 21:28] VITALS: RESP 15
== END 2024-08-07 21:27 | disposition home or self-care (01) ==
LOC: ER 15:29
DX: E11.621 Type 2 diabetes mellitus with foot ulcer (principal); L97.528 Non-pressure chronic ulcer of other part of left foot with other specified severity; L97.518 Non-pressure chronic ulcer of other part of right foot with other specified severity; E11.42 Type 2 diabetes mellitus with diabetic polyneuropathy; I10 Essential (primary) hypertension; G89.29 Other chronic pain; F41.9 Anxiety disorder, unspecified; F32.A Depression, unspecified; F12.90 Cannabis use, unspecified, uncomplicated; Z86.73 Personal history of transient ischemic attack (TIA), and cerebral infarction without residual deficits; Z79.82 Long term (current) use of aspirin; Z79.899 Other long term (current) drug therapy; Z88.2 Allergy status to sulfonamides; Z85.41 Personal history of malignant neoplasm of cervix uteri; Z90.710 Acquired absence of both cervix and uterus
CPT/HCPCS: 36415; 71045; 80048; 81001; 83605; 84145; 85025; 87040; 99284; A6402; J7030; 87077; 87186; A6449

== ENCOUNTER 2025-01-28 13:34 | Outpatient (CLI) | payer MEDICARE, MEDICAID ==
[~2025-01-28 13:34] MED LIST changes: +NYST15CR TOP; -NYST15CR36 TOP; +TRAZ-256 PO
--- NOTE | 2025-01-28 17:51 | RADIOLOGY REPORT ---
EXAM: CT CT LOWER EXTREMITY INDICATION: PAIN IN RIGHT KNEE TECHNIQUE: Axial images of right lower extremity have been obtained along with coronal and sagittal r eformatted images. All CT scans at this facility use dose modulation, iterative reconstruction, and/o r weight based dosing when appropriate to reduce radiation dose to as low as reasonably achievable. COMPARISON: MR MRI LOWER EXTREMITY LEFT on DOS: 11/20/24 FINDINGS: BONES: No CT evidence of an acute fracture or aggressive osseous lesion. MUSCLES: Mild fatty infiltration of the medial head of the gastrocnemius. JOINT SPACES: Small knee joint effusion. Mild medial weight-bearing compartment joint space loss. TENDONS/LIGAMENTS: Intact. OTHER: Vascular calcifications. IMPRESSION: 1. Small knee joint effusion. Mild medial weight-bearing compartment joint space loss. 2. Mild fatty infiltration of the medial head of the gastrocnemius. Likely sequelae of prior injury.
== END 2025-01-28 23:59 | disposition home or self-care (01) ==
LOC: RAD 13:34
PROVIDERS: ATTEND Internal Medicine
DX: M25.461 Effusion, right knee (principal); R26.2 Difficulty in walking, not elsewhere classified; M25.561 Pain in right knee
CPT/HCPCS: 73700

== ENCOUNTER 2025-02-18 22:12 | Emergency (ER) | payer MEDICARE, MEDICAID ==
[~2025-02-18] VITALS: Ht 152.4 cm; Wt 81.3 kg
[2025-02-18 22:17] VITALS: TEMP 98.3
[2025-02-18 22:42] LABS: MEAN PLATELET VOLUME 7.6 FL (7.4-10.4); RED CELL DISTRIBUTION WIDTH 15.3 % (11.5-14.5)
[2025-02-18 22:57] LABS: CREATININE 0.90 MG/DL (0.40-0.90); TOTAL CARBON DIOXIDE 29.1 MMOL/L (24-32); eCRCL 48 ML/MIN; eGFR 64 ML/MIN
--- NOTE | 2025-02-18 22:58 | RADIOLOGY REPORT ---
CHEST RADIOGRAPH Indication: CP Technique: Single frontal view of the chest was obtained COMPARISON: DI CHEST,SINGLE VIEW on DOS: 11/19/24, DI CHEST,SINGLE VIEW on DOS: 08/07/24, DI CHEST,SINGL E VIEW on DOS: 07/22/24, DI CHEST,SINGLE VIEW on DOS: 07/18/24, CHEST,SINGLE VIEW on DOS: 01/22/22 FINDINGS: Lines and Tubes: None Lungs: Clear Pleura: No effusion. No pneumothorax. Cardiomediastinal contours: Unremarkable Bones: Unremarkable IMPRESSION: 1. No acute disease.
[2025-02-18 23:04] LABS: PRO BRAIN NATRIURETIC PEPTIDE 75 PG/ML (0-125)
--- NOTE | 2025-02-18 23:11 | Physician Documentation ---
History of Present Illness ~ Chief Complaint: Syncope Stated Complaint: FALL Time Seen by MD: 22:22 Primary Medical Doctor: [facility] Source: patient, EMS, EMS notes reviewed Mode of Arrival: EMS Exam Limitations: no limitations HPI Chief Complaint: Passed out, hit head Caveat: None Independent Historians: Paramedics, daughter History of Present Illness: Patient is a 59-year-old woman brought in by paramedics from home after having passed out. Patient was driving home and was in her driveway when she got out of the car closed the car door and ended up passing out falling and striking the back of her head on the tire. This was witnessed by her daughter who is also with her. Daughter states that she was possibly out for 1 minute before she came to. Patient has had several episodes of syncope in the past thought to be related to hypotension. Paramedics found the patient's blood pressure to be as low as 68/49. Paramedics gave her 500 cc of normal saline. Upon arrival patient's blood pressure had improved to 90 7/62. Patient was never bradycardic. Heart rate remained in the 80s. Patient was never hypoxic with a pulse ox of 96% on room air. Patient's GCS also has been normal at 15. Daughter states that there was no seizure activity. Daughter also states that she appeared very pale and blue. Patient states that she has been feeling fatigued since her discharge from [facility]. No other symptoms. No headache, no nausea or vomiting. Medical records review: Patient had a recent admission to [facility] for diabetic foot ulcer and toe amputation on the right and left foot. Patient was discharged to [facility] and then to [facility] and was discharged from [facility] on February 04. Review of systems: All systems were reviewed and are negative except for what is indicated in the history of present illness. Past Medical History: Syncope, hypertension, patient states that her blood pr essure is labile may be high but usually runs 118 to 130 systolic. PTSD, anxiety, depression, diabetic foot ulcers, HTN Past Surgical History: Hysterectomy, orthopedic surgeries Social History: Tobacco use, no alcohol use, marijuana use Medications: Reviewed as documented Nursing Notes Allergies: Reviewed as documented in Nursing Notes Medication Reconciliation Allergies: Coded Allergies: Sulfa (Sulfonamide Antibiotics) (Unverified Adverse Reaction, Unknown, 02/18/25) sulfamethoxazole (Unverified Adverse Reaction, Unknown, 02/18/25) trimethoprim (Unverified Adverse Reaction, Unknown, 02/18/25) Uncoded Allergies: shellfish (Allergy, Intermediate, 05/12/16) Scheduled Amlodipine Besylate (Amlodipine Besylate), 1 TAB PO DAILY, (Reported) Duloxetine HCl (Duloxetine HCl), 2 CAP PO DAILY, (Reported) Gabapentin (Gabapentin), 1 TAB PO BID, (Reported) Insulin Glargine,Hum.rec.anlog (Lantus), 50 UNIT SQ DAILY, (Reported) Lurasidone HCl (Lurasidone HCl), 1 TAB PO QAM, (Reported) Nystatin (Nystatin), 1 APPLIC TOP BID, (Reported) Nystatin (NYSTOP powder), 1 APPLIC TOP TID, (Reported) Omeprazole (Omeprazole), 1 CAP PO DAILY, (Reported) Triamcinolone Acetonide 0.1% Crm* (Kenalog 0.1% Crm*), 1 APPLIC TOP TID, (Reported) Scheduled PRN Hydrocodone Bit/Acetaminophen (Hydrocodone-Apap 10-325 Tablet), 1 TAB PO QID PRN for pain, (Reported) Hydroxyzine Hcl* (Atarax*), 1 TAB PO Q8H PRN for anxiety, (Reported) Sumatriptan Succinate* (Imitrex Tab*), 1 TAB PO DAILY PRN for pain, (Reported) Trazodone HCl (Trazodone HCl), 2 TAB PO HS PRN for sleep, (Reported) Miscellaneous Medications [Albuterol], (Reported) Durable Medical Equipment Pen Needle, Diabetic (Bd Ultra-Fine Pen Needle), DAILY, (Reported), (DME) Past Medical History Past Medical History: Peripheral Neuropathy, Hypertension, Diabetes, Chronic Pain, Cervical Cancer/Dysplasia, Anxiety, Depression Past Surgical History: hysterectomy Patient History: (CVA) Cerebrovascular accident MOTHER (mom had a cva in her 50s) (Cancer) Malignant carcinoid tumor FATHER (hx prostate cancer and from myoloma) (DM Type 2) Diabetes mellitus type 2 FATHER (father with type two dm) MOTHER (type 2 dm) Asthma CHILD Alcohol Use: None Drug Use: marijuana Lives with: Other Lives In: Home Occupation: disabled Physical Exam Vital Signs: Temperature: 98.3, Source: Oral, Heart Rate: 75, Respiratory Rate: 16, BP: 98/54, Pulse Oximetry: 93, Weight: 81.300 Progress Results/Orders Results/Orders Orders - JAMIR CALLE MD Electrocardiogram (02/18/25 22:22) Chest,Single View (02/18/25 22:38) Saline Lock (02/18/25 22:22) Monitor (02/18/25 22:22) Hs Troponin I W Calculations (02/19/25 00:22) Hs Troponin I W Calculations (02/19/25 01:22) Ct Head (02/18/25 22:45) Orthostatic Vs (02/18/25 23:19) Completed Orders - JAMIR CALLE MD Cbc/Diff (02/18/25 22:22) MG (02/18/25 22:22) PBNP (02/18/25 22:22) Chest,Single View (02/18/25 22:38) Hs Troponin I W Calculations (02/18/25 22:22) CMP (02/18/25 22:22) Ct Head (02/18/25 22:45) Vital Signs 02/18/25 02/18/25 02/19/25 02/19/25 22:17 22:25 00:01 00:02 Temp 98.3 Pulse 75 64 76 Resp 16 16 16 B/P (MAP) 98/54 117/59 (78) 109/54 Pulse Ox 93 95 Laboratory Tests Test 02/18/25 22:35 White Blood Count 5.7 Red Blood Count 4.27 Hemoglobin 12.0 Hematocrit 35.3 Mean Corpuscular Volume 82.7 Mean Corpuscular Hemoglobin 28.2 Mean Corpuscular Hemoglobin Concent 34.1 Red Cell Distribution Width 15.3 H Platelet Count 213 Mean Platelet Volume 7.6 Neutrophils (%) (Auto) 62.2 Lymphocytes (%) (Auto) 22.7 Monocytes (%) (Auto) 9.4 Eosinophils (%) (Auto) 4.8 Basophils (%) (Auto) 0.9 Neutrophils # (Auto) 3.5 Lymphocytes # (Auto) 1.3 Monocytes # (Auto) 0.5 Eosinophils # (Auto) 0.3 Basophils # (Auto) 0.0 CBC Comment Sodium Level 137 Potassium Level 3.8 Chloride Level 104 Carbon Dioxide Level 29.1 Anion Gap 4 L Blood Urea Nitrogen 16 Creatinine 0.90 Estimated GFR/1.73 m2 64 BUN/Creatinine Ratio 17.8 Glucose Level 168 H Calcium Level 8.1 L Magnesium Level 1.7 Total Bilirubin 0.4 Aspartate Amino Transf (AST/SGOT) 12 Alanine Aminotransferase (ALT/SGPT) 23 Alkaline Phosphatase 141 H Troponin I High Sensitivity 4 Pro-B-Type Natriuretic Peptide 75 Total Protein 6.4 Albumin 3.4 Globulin 3.0 Albumin/Globulin Ratio 1.1 Chemistry Comments Medical Decision Making Findings Differential diagnosis includes but is not limited to: GI bleed, sepsis, pulmonary embolus, vasovagal episode, traumatic brain injury, skull fracture, minor closed head injury, autonomic dysfunction secondary to diabetes, dehydration EKG independent interpretation: Performed at 10:29 p.m.. Normal sinus rhythm, heart rate 74, normal axis, normal ST segments Chest x-ray, single view, indication: Syncope Independent interpretation: Lungs are clear, normal mediastinum, normal cardiac silhouette. Head CT without IV contrast, indication: Head injury Impression: 1. No acute intracranial abnormality. Laboratory data independent interpretation: CBC: Unremarkable CMP: Unremarkable, mildly elevated serum glucose 168 Troponin: Or Pro BNP: 75 Emergency department course/medical decision-making: Patient presents with an episode of syncope secondary to hypotension. The source for the hypotension has not been identified. Do not suspect pulmonary embolus. Patient isn't tachycardic or hypoxic or having any chest pain or resp iratory distress. In addition the patient has had syncopal episodes in the past. Patient did end up striking her head but has no evidence of traumatic brain injury. Patient is neurologically intact with a normal GCS of 15. Patient was given a total of 1 L of normal saline between the medics and us. Patient is back to baseline. Cause with the hypotension is unknown but her blo od pressure has improved back to her baseline. Patient is stable for discharge. All the above discussed with the patient and the patient's daughter. Departure Time of Disposition: 00:12 Disposition: 01 HOME / SELF CARE / HOMELESS Impression: Primary Impression: Syncope Qualified Codes: R55 - Syncope and collapse Additional Impressions: Minor closed head injury Hypotension resolved Discharge Instructions: Syncope, Adult Additional Instructions: WOULD RECOMMEND HOLDING YOUR AMLODIPINE IF YOUR BLOOD PRESSURE REMAINS BELOW 120 SYSTOLIC. FOLLOW UP WITH YOUR PRIMARY CARE DOCTOR. RETURN TO THE ER IF YOU HAVE ANY RECURRENT SYNCOPE. Education Educated: Patient, Family Educated regarding: diagnosis, treatment, need for follow up Signature Scribe Signature: No scribe Attestation: No scribe JAMIR CALLE MD Feb 18, 2025 23:11
--- NOTE | 2025-02-18 23:46 | RADIOLOGY REPORT ---
EXAM: CT CT HEAD INDICATION: aloc TECHNIQUE: CT of the head without intravenous contrast. Radiation Dose : 1. Head: CT Dose: CTDI volume is 55.45 mGy. Dose-length product is 935.47 mGy*cm The dose indicators for CT are the volume Computed Tomography (CT) Dose Index (CTDIvol) and the Dose Length Product (DLP), and are measured in units of mGy and mGy-cm, respectively. These indicators are not patient dose, but values generated from the CT scanner acquisition factors. The report includes radiation exposure data for exposures received during this examination. COMPARISON: CT HEAD on DOS: 01/22/22 FINDINGS: There is no evidence of acute intracranial hemorrhage, extra-axial collection, mass effect, midline s hift, herniation or hydrocephalus. The ventricles, sulci and cisterns are age appropriate. The baum-white differentiation is intact. The visualized paranasal sinuses and mastoid air cells are clear. The surrounding soft tissues and osseous structures are unremarkable. IMPRESSION: 1. No acute intracranial abnormality. Radiation optimization: All CT scans at this facility use at least one of these dose optimization ibis hniques: automated exposure control mA and/or kV adjustment per patient size (includes targeted exam s where dose is matched to clinical indication) or iterative reconstruction.
[2025-02-19 00:01] VITALS: RESP 16; O2SAT 95
[2025-02-19 00:02] VITALS: BP 109/54; PULSE 76
--- NOTE | 2025-02-19 10:03 | ELECTROCARDIOGRAPH REPORT ---
[facility] Test Date: 2025-02-18 Test Time: 22:29:38 Pat Name: MARIBEL ADDISON Department: EMERGENCY ROOM [id number] Room: Gender: F Agronomy Supervisor: : 1965 Requested By: JAMIR CALLE Order Number: [id number] Reading MD: Measurements Intervals [place] Rate: 74 P: 30 MT: 153 QRS: 43 QRSD: 82 T: 4 QT: 395 QTc: 439 Interpretive Statements Sinus rhythm Low voltage, precordial leads Baseline wander in lead(s) I,II,aVR,aVL,aVF Please click the below link to view image of tracing.
== END 2025-02-19 00:27 | disposition home or self-care (01) ==
LOC: ER 22:13
DX: S09.8XXA Other specified injuries of head, initial encounter (principal); R55 Syncope and collapse; E11.621 Type 2 diabetes mellitus with foot ulcer; I10 Essential (primary) hypertension; F41.9 Anxiety disorder, unspecified; F32.A Depression, unspecified; F12.90 Cannabis use, unspecified, uncomplicated; J45.909 Unspecified asthma, uncomplicated; Z85.41 Personal history of malignant neoplasm of cervix uteri; Z88.2 Allergy status to sulfonamides; Z88.8 Allergy status to other drugs, medicaments and biological substances; Z90.710 Acquired absence of both cervix and uterus; Z79.899 Other long term (current) drug therapy; W23.0XXA Caught, crushed, jammed, or pinched between moving objects, initial encounter; Y93.89 Activity, other specified; Y92.89 Other specified places as the place of occurrence of the external cause; Y99.8 Other external cause status
CPT/HCPCS: 36415; 70450; 71045; 80053; 83735; 83880; 84484; 85025; 93005; 99285